=== PATIENT | female | born 1960 | race Caucasian/White ===

== ENCOUNTER → 2018-03-21 | Outpatient (CLI) | payer BC ==
--- NOTE | 2018-03-21 08:14 | CT ---
EXAMINATION TYPE: CT brain wo con DATE OF EXAM: 03/21/2018 COMPARISON: 09/22/2010 HISTORY: Head injury subsequent pain and blurred vision. CT DLP: 1017.9 mGycm. Automated Exposure Control for Dose Reduction was Utilized. TECHNIQUE: CT scan of the head is performed without contrast. FINDINGS: There is no acute intracranial hemorrhage, mass effect, or midline shift identified. No suspicious extra-axial fluid collection. The ventricles and sulci are within normal limits in size. The globes are intact and the visualized sinuses are clear. There is undulation of the nasal septum. No evidence of acute fracture or dislocation in the visualized osseous structures. Scant mucosal secr etions are seen within the posterior nasopharynx. Orbits are symmetric as are the extraocular muscles and lenses. IMPRESSION: 1. No acute intracranial hemorrhage, mass effect, or midline shift is seen. 2. Globes, extraocular muscles, and lenses are symmetric. No intraconal or extraconal masses seen. Oc cipital lobe and optic and chiasm are unremarkable. If there is further clinical concern MRI could be performed.
== END | disposition home or self-care (01) ==
LOC: RADCTMAIN 07:15
PROVIDERS: ATTEND Family Medicine
DX: S09.90XA Unspecified injury of head, initial encounter (principal)
CPT/HCPCS: 70450

== ENCOUNTER 2020-01-11 06:15 | Day surgery (SDC) | payer BC ==
[2020-01-10 09:13] VITALS: BMI 36.0
[~2020-01-11 06:15] MED LIST: ALPRAZolam 0.25 MG TAB PO PRN; ALPRAZolam 0.5 MG TAB PO PRN; NITROGLYCERIN SL TABS 0.4 MG TAB SUBLINGUAL PRN; SODIUM CHLORIDE 0.9% 1,000 ML in EMPTY BAG 1 BAG IV ONE
[2020-01-11] MEDS ORDERED: ASPIRIN 325 MG TAB PO ONE (07:00)
[2020-01-11] MEDS ORDERED: ATORVASTATIN 80 MG TAB PO ONE (07:00)
[2020-01-11] MEDS ORDERED: SODIUM CHLORIDE 0.9% 1,000 ML IV ONE (07:05)
[2020-01-11 07:08] VITALS: RESP 16; TEMP 98.2
[2020-01-11 07:09] LABS: Glucose,Whole Blood 152 mg/dL (75-99)
[2020-01-11 07:16] LABS: Basophils # (A) 0.1 k/uL (0-0.2); Basophils % (A) 1 %; Eosinophils # (A) 0.2 k/uL (0-0.7); Eosinophils % (A) 2 %; HCT 41.7 % (34.0-46.0); HGB 13.3 gm/dL (11.4-16.0); Lymphocytes # (A) 1.5 k/uL (1.0-4.8); Lymphocytes % (A) 19 %; MCHC 31.8 g/dL (31.0-37.0); MCV 94.3 fL (80.0-100.0); Mean Platelet Volume 8.7; Monocytes # (A) 0.4 k/uL (0-1.0); Monocytes % (A) 6 %; Neutrophils # (A) 5.4 k/uL (1.3-7.7); Neutrophils % (A) 71 %; Platelet Count 269 k/uL (150-450); RBC 4.42 m/uL (3.80-5.40); RDW 12.7 % (11.5-15.5); WBC 7.6 k/uL (3.8-10.6)
[2020-01-11 07:25] LABS: African American GFR (CKD) >90 (>60 ml/min/1.73 sqM); Anion Gap 11 mmol/L; Blood Urea Nitrogen 30 mg/dL (7-17); Calcium 9.2 mg/dL (8.4-10.2); Carbon Dioxide 20 mmol/L (22-30); Chloride 107 mmol/L (98-107); Glucose 155 mg/dL (74-99); Non-African American GFR(CKD) >90 (>60 ml/min/1.73 sqM); Potassium 4.3 mmol/L (3.5-5.1); Sodium 138 mmol/L (137-145)
[2020-01-11] MEDS ORDERED: fentaNYL (PF) 50 MCG/ML 2 ML AMP IV ONE (07:50)
[2020-01-11] MEDS ORDERED: LIDOCAINE 1% INJ 10MG/ML (20 ML MDV) SQ ONE (07:53)
[2020-01-11] MEDS ORDERED: MIDAZOLAM 2 MG/2 ML VIAL IVP ONE (07:54)
[2020-01-11] MEDS ORDERED: VERAPAMIL SYRINGE (5 MG/10 ML) INTRAARTER ONE (07:57)
[2020-01-11] MEDS ORDERED: HEPARIN SODIUM 1,000 UN/ML (10ML VL) IV ONE (08:02)
[2020-01-11] MEDS ORDERED: IOPAMIDOL-370 125ML BTL INJ ONE (08:06)
[2020-01-11] MEDS ORDERED: RX INFO: IV CONTRAST WAS GIVEN 1 EACH MISC MISCELLANE PRN (08:21)
[2020-01-11] MEDS ORDERED: SODIUM CHLORIDE 0.9% 1,000 ML IV SCH (08:30)
[2020-01-11] MEDS ORDERED: MULTIVIT WITH CALCIUM IRON MIN PO SCH (09:00)
[2020-01-11] MEDS ORDERED: NON FORMULARY DRUG (Ascorbic Acid [Vitamin C] 1,000 MG) PO SCH (09:00)
[2020-01-11] MEDS ORDERED: ATORVASTATIN 40 MG TAB PO SCH (09:00)
[2020-01-11] MEDS ORDERED: LISINOPRIL 2.5 MG TAB PO SCH (09:00)
--- NOTE | 2020-01-11 11:40 | CC ---
CARDIAC CATHETERIZATION REPORT Mrs Rojas is a 59-year-old female with known history of hypertension, hyperlipidemia, diabetes mellitus, who recently has been complaining of progressive dyspnea on exertion and episode of chest discomfort. She underwent a myocardial perfusion imaging that revealed a partially reversible defect with evidence of cardiomyopathy. In view of that, recommendations were made regarding cardiac catheterization. The procedures, risks, and complications were discussed with the patient who is in full understanding and agreement. PROCEDURE: Patient was brought to cath lab tech in a fasting semi-sedated state after receiving fentanyl and Benadryl and achieving moderate conscious sedated state. Using Xylocaine anesthesia and Seldinger technique, a 6-Cymraes sheath was introduced in the right radial artery. Selective right and left coronary angiography performed using 5-Cymraes 3.5 bend right and left David catheter. Multiple views of the coronary artery including hemiaxial views obtained. Following that 5-Cymraes tight pigtail catheter introduced into the left ventricle and a 30-degree MARISCAL view of the left ventricle was obtained. Following that, catheter and sheath were removed. Hemostasis was obtained with deployment of a TR band. There was no immediate complication. Patient is returned to her room in stable condition. Of note, the patient had received 5000 units of intravenous heparin as well as intra-arterial verapamil. FINDINGS: LEFT MAIN: This is a short size vessel, trifurcating into left circumflex, left anterior descending artery and ramus intermedius. Left main coronary artery has no evidence of obstructive disease. LEFT ANTERIOR DESCENDING ARTERY: This is a large-sized vessel, reaching toward the apex with a wraparound apex segment, giving rise to 3 diagonal branch. The second one is the largest in caliber. The left anterior descending artery as well as branches have no evidence of obstructive coronary artery disease. RAMUS INTERMEDIUS: This is a large-sized vessel reaching toward the apical lateral wall. The ramus intermedius has no evidence of high-grade stenosis. LEFT CIRCUMFLEX: This is a small nondominant vessel, giving rise to 2 obtuse marginal branch of small caliber, prior to the takeoff of the obtuse marginal branch, there is an eccentric 40% plaque. The rest of the vessel has no high-grade stenosis. RIGHT CORONARY ARTERY: This is a large dominant vessel, bifurcating distally into PDA and posterolateral segment and branches. The right coronary artery as well as branches have no evidence of obstructive coronary artery disease. LEFT VENTRICULOGRAM: Left ventriculogram is performed in 30-degree MARISCAL view and revealed a global hypokinesis with ejection fraction of 35% to 40% There was no significant mitral regurgitation. HEMODYNAMICS: There was no gradient across the aortic valve. The left ventricular end- diastolic pressure was 26-30 mmHg. CONCLUSION: 1. Mild obstructive disease involving the left circumflex. 2. Moderately to severely impaired left ventricular systolic function with global hypokinesis. 3. Elevated left ventricular end-diastolic pressure. RECOMMENDATION: Those finding are consistent with nonischemic cardiomyopathy. At this time, I will maximize her medical therapy and depending on her progress, further recommendation will be made. Those findings and recommendation were discussed with the patient her family and they are in full understanding and agreement. Duration of procedure is 22 minutes. MMAMBERLYL / IJN: [id number] /
[2020-01-11 13:26] VITALS: BP 158/74; PULSE 58
[2020-01-11] MEDS ORDERED: METOPROLOL TARTRATE 25 MG TAB PO SCH (21:00)
[2020-01-11] MEDS ORDERED: SERTRALINE 100 MG TAB PO SCH (21:00)
[2020-01-11] MEDS ORDERED: ROPINIROLE HCL 5 MG PO SCH (21:00)
[2020-01-12] MEDS ORDERED: LEVOTHYROXINE 100 MCG TAB PO SCH (06:30)
[2020-01-12] MEDS ORDERED: ASPIRIN 81 MG PO SCH (09:00)
== END 2020-01-11 13:36 | disposition home or self-care (01) ==
LOC: CATHCVL 06:15
PROVIDERS: ATTEND Internal Medicine Interventional Cardiology
DX: I25.10 Atherosclerotic heart disease of native coronary artery without angina pectoris (principal); I10 Essential (primary) hypertension; I42.8 Other cardiomyopathies; E78.2 Mixed hyperlipidemia; E11.9 Type 2 diabetes mellitus without complications; E66.9 Obesity, unspecified; Z79.84 Long term (current) use of oral hypoglycemic drugs; Z79.82 Long term (current) use of aspirin; Z79.899 Other long term (current) drug therapy; Z88.5 Allergy status to narcotic agent; Z90.710 Acquired absence of both cervix and uterus; Z90.49 Acquired absence of other specified parts of digestive tract; Z98.890 Other specified postprocedural states; Z96.659 Presence of unspecified artificial knee joint; Z87.891 Personal history of nicotine dependence; Z82.49 Family history of ischemic heart disease and other diseases of the circulatory system; Z68.36 Body mass index [BMI] 36.0-36.9, adult
CPT/HCPCS: 93458; 80048; 85025; U0003; J2250; J2001; J3010; J1644; Q9967

== ENCOUNTER 2020-06-03 08:28 | Observation (INO) | payer BC ==
--- NOTE | 2020-06-03 09:10 | ED ---
General Adult HPI - General Chief complaint: Chest Pain Stated complaint: chest tightness/SOB Time Seen by Provider: 06/03/20 08:50 Source: patient, RN notes reviewed, old records reviewed Mode of arrival: wheelchair Limitations: no limitations - History of Present Illness Initial comments: 59-year-old female history of nonischemic cardiomyopathy presenting for evaluation of chest tightness and dyspnea. Parisa Barneysreedhar states since yesterday evening she's had a chest discomfort and dyspnea with exertion. She reports she is easily fatigued. These are associated with nausea and diaphoresis. Pain does travel to the left shoulder. She had a heart catheterization in December 2019. She denies fever or URI symptoms. - Related Data Home Medications Medication Instructions Recorded Confirmed Aspirin [Adult Low Dose Aspirin EC] 81 mg PO DAILY 01/10/20 06/03/20 Sertraline HCl [Zoloft] 100 mg PO HS 01/10/20 06/03/20 Atorvastatin [Lipitor] 20 mg PO HS 06/03/20 06/03/20 Levothyroxine Sodium [Synthroid] 150 mcg PO DAILY 06/03/20 06/03/20 Metoprolol Tartrate [Lopressor] 50 mg PO QAM 06/03/20 06/03/20 rOPINIRole HCL [Requip] 4 mg PO HS 06/03/20 06/03/20 Allergies Allergy/AdvReac Type Severity Reaction Status Date / Time codeine AdvReac NAUSEA, Verified 06/03/20 09:37 VOMITING, SWEATY. Review of Systems ROS Statement: Those systems with pertinent positive or pertinent negative responses have been documented in the HPI. ROS Other: All systems not noted in ROS Statement are negative. Past Medical History Past Medical History: Hypertension, Thyroid Disorder Additional Past Medical History / Comment(s): restless leg syndrome History of Any Multi-Drug Resistant Organisms: None Reported Past Surgical History: Cholecystectomy, Hernia Repair, Hysterectomy, Orthopedic Surgery Additional Past Surgical History / Comment(s): cyst removed from neck Past Psychological History: ADD/ADHD, Anxiety Smoking Status: Former smoker Past Alcohol Use History: Occasional Past Drug Use History: None Reported General Exam Limitations: no limitations General appearance: alert, in no apparent distress Head exam: Present: atraumatic, normocephalic Eye exam: Present: normal appearance, PERRL ENT exam: Present: normal exam Neck exam: Present: normal inspection. Absent: tenderness, meningismus Respiratory exam: Present: normal lung sounds bilaterally. Absent: respiratory distress, wheezes, rales Cardiovascular Exam: Present: regular rate, normal rhythm GI/Abdominal exam: Present: soft. Absent: distended, tenderness, guarding Extremities exam: Present: normal inspection, normal capillary refill. Absent: calf tenderness Back exam: Present: normal inspection Neurological exam: Present: alert, oriented X3, CN II-XII intact. Absent: motor sensory deficit Psychiatric exam: Present: normal affect, normal mood Skin exam: Present: warm, diaphoretic. Absent: cyanosis Course Vital Signs 06/03/20 06/03/20 08:42 10:44 Temperature 98 F Pulse Rate 95 93 Respiratory 16 17 Rate Blood Pressure 157/110 163/111 O2 Sat by Pulse 96 100 Oximetry EKG Findings - EKG Comments: EKG Findings:: EKG: Normal sinus rhythm, left bundle branch block, rate of 96, OH interval 200, QRS duration 126, QTC 475, history of intraventricular conduction delay, no old for comparison, no ST segment elevation. Medical Decision Making - Medical Decision Making 59-year-old female presenting for evaluation of dyspnea and chest tightness. Patient has associated symptoms of nausea and diaphoresis. EKG is sinus rhythm without ST segment elevation, similar QRS morphology compared to rhythm strips in the past. No old EKG for comparison. She had a heart cath in December 2019 which showed mild obstructive disease and was consistent with a nonischemic cardiomyopathy. Her chest x-ray today shows pulmonary vascular congestion concerning for CHF. She has a negative troponin. Her BNP is elevated at 4940. She did have an elevated d-dimer and CT angiography was performed. Negative for pulmonary embolism, showed cardiomegaly and pulmonary vascular congestion. - Lab Data Result diagrams: 06/03/20 09:05 06/03/20 09:05 Lab Results 06/03/20 06/03/20 06/03/20 Range/Units 09:05 09:05 09:05 WBC 9.6 (3.8-10.6) k/uL RBC 4.97 (3.80-5.40) m/uL Hgb 15.5 (11.4-16.0) gm/dL Hct 47.4 H (34.0-46.0) % MCV 95.5 (80.0-100.0) fL MCH 31.2 (25.0-35.0) pg MCHC 32.7 (31.0-37.0) g/dL RDW 12.6 (11.5-15.5) % Plt Count 266 (150-450) k/uL Neutrophils % 77 % Lymphocytes % 14 % Monocytes % 5 % Eosinophils % 2 % Basophils % 1 % Neutrophils # 7.4 (1.3-7.7) k/uL Lymphocytes # 1.4 (1.0-4.8) k/uL Monocytes # 0.5 (0-1.0) k/uL Eosinophils # 0.2 (0-0.7) k/uL Basophils # 0.1 (0-0.2) k/uL PT 10.1 (9.0-12.0) sec INR 1.0 (<1.2) APTT 21.2 L (22.0-30.0) sec D-Dimer 0.64 H (<0.60) mg/L FEU Sodium 135 L (137-145) mmol/L Potassium 4.3 (3.5-5.1) mmol/L Chloride 103 (98-107) mmol/L Carbon Dioxide 25 (22-30) mmol/L Anion Gap 7 mmol/L BUN 18 H (7-17) mg/dL Creatinine 0.50 L (0.52-1.04) mg/dL Est GFR (CKD-EPI)AfAm >90 (>60 ml/min/1.73 sqM) Est GFR (CKD-EPI)NonAf >90 (>60 ml/min/1.73 sqM) Glucose 175 H (74-99) mg/dL Calcium 9.2 (8.4-10.2) mg/dL Magnesium 1.6 (1.6-2.3) mg/dL Total Bilirubin 1.1 (0.2-1.3) mg/dL AST 36 (14-36) U/L ALT 43 H (4-34) U/L Alkaline Phosphatase 63 (38-126) U/L Troponin I (0.000-0.034) ng/mL NT-Pro-B Natriuret Pep pg/mL Total Protein 6.9 (6.3-8.2) g/dL Albumin 4.1 (3.5-5.0) g/dL 06/03/20 06/03/20 Range/Units 09:05 09:05 WBC (3.8-10.6) k/uL RBC (3.80-5.40) m/uL Hgb (11.4-16.0) gm/dL Hct (34.0-46.0) % MCV (80.0-100.0) fL MCH (25.0-35.0) pg MCHC (31.0-37.0) g/dL RDW (11.5-15.5) % Plt Count (150-450) k/uL Neutrophils % % Lymphocytes % % Monocytes % % Eosinophils % % Basophils % % Neutrophils # (1.3-7.7) k/uL Lymphocytes # (1.0-4.8) k/uL Monocytes # (0-1.0) k/uL Eosinophils # (0-0.7) k/uL Basophils # (0-0.2) k/uL PT (9.0-12.0) sec INR (<1.2) APTT (22.0-30.0) sec D-Dimer (<0.60) mg/L FEU Sodium (137-145) mmol/L Potassium (3.5-5.1) mmol/L Chloride (98-107) mmol/L Carbon Dioxide (22-30) mmol/L Anion Gap mmol/L BUN (7-17) mg/dL Creatinine (0.52-1.04) mg/dL Est GFR (CKD-EPI)AfAm (>60 ml/min/1.73 sqM) Est GFR (CKD-EPI)NonAf (>60 ml/min/1.73 sqM) Glucose (74-99) mg/dL Calcium (8.4-10.2) mg/dL Magnesium (1.6-2.3) mg/dL Total Bilirubin (0.2-1.3) mg/dL AST (14-36) U/L ALT (4-34) U/L Alkaline Phosphatase (38-126) U/L Troponin I 0.028 (0.000-0.034) ng/mL NT-Pro-B Natriuret Pep 4940 pg/mL Total Protein (6.3-8.2) g/dL Albumin (3.5-5.0) g/dL Disposition Clinical Impression: Chest pain, CHF (congestive heart failure) Disposition: ADMITTED IP TO THIS HOSP Condition: Stable Is patient prescribed a controlled substance at d/c from ED?: No Referrals: Eri Ann DO [Primary Care Provider] - 1-2 days Decision to Admit Reason: Admit from EC Decision Date: 06/03/20 Decision Time: 10:53
--- NOTE | 2020-06-03 09:18 | XR ---
EXAMINATION TYPE: XR chest 2V DATE OF EXAM: 06/03/2020 COMPARISON: 09/22/2010 HISTORY: 59-year-old female with chest pain TECHNIQUE: PA and lateral views FINDINGS: Heart mildly enlarged. Aorta within normal limits. Mild interstitial prominence. No nabor consolidati on or pleural effusion. IMPRESSION: Mild cardiomegaly, new from 2010. Correlate with patient's fluid status to exclude mild pulmonary vas cular congestion.
[2020-06-03 09:19] LABS: Basophils # (A) 0.1 k/uL (0-0.2); Basophils % (A) 1 %; Eosinophils # (A) 0.2 k/uL (0-0.7); Eosinophils % (A) 2 %; HCT 47.4 % (34.0-46.0); HGB 15.5 gm/dL (11.4-16.0); Lymphocytes # (A) 1.4 k/uL (1.0-4.8); Lymphocytes % (A) 14 %; MCH 31.2 pg (25.0-35.0); MCHC 32.7 g/dL (31.0-37.0); MCV 95.5 fL (80.0-100.0); Mean Platelet Volume 8.9; Monocytes # (A) 0.5 k/uL (0-1.0); Monocytes % (A) 5 %; Neutrophils # (A) 7.4 k/uL (1.3-7.7); Neutrophils % (A) 77 %; Platelet Count 266 k/uL (150-450); RBC 4.97 m/uL (3.80-5.40); RDW 12.6 % (11.5-15.5); WBC 9.6 k/uL (3.8-10.6)
[2020-06-03 09:32] LABS: ALT 43 U/L (4-34); AST 36 U/L (14-36); African American GFR (CKD) >90 (>60 ml/min/1.73 sqM); Albumin 4.1 g/dL (3.5-5.0); Alkaline Phosphatase 63 U/L (38-126); Anion Gap 7 mmol/L; Blood Urea Nitrogen 18 mg/dL (7-17); Calcium 9.2 mg/dL (8.4-10.2); Carbon Dioxide 25 mmol/L (22-30); Chloride 103 mmol/L (98-107); Glucose 175 mg/dL (74-99); Magnesium 1.6 mg/dL (1.6-2.3); Non-African American GFR(CKD) >90 (>60 ml/min/1.73 sqM); Potassium 4.3 mmol/L (3.5-5.1); Sodium 135 mmol/L (137-145); Total Bilirubin 1.1 mg/dL (0.2-1.3); Total Protein 6.9 g/dL (6.3-8.2)
[2020-06-03 09:39] LABS: Prothrombin Time 10.1 sec (9.0-12.0)
[2020-06-03 09:43] LABS: D-Dimer 0.64 mg/L FEU (<0.60); Partial Thromboplastin Time 21.2 sec (22.0-30.0)
[2020-06-03] MEDS ORDERED: FUROSEMIDE 10 MG/ML 4 ML VIAL IV STA (10:13)
--- NOTE | 2020-06-03 11:10 | CT ---
EXAMINATION TYPE: CT angio chest DATE OF EXAM: 06/03/2020 10:40 AM COMPARISON: HISTORY: difficulty breathing CT DLP: 368.1 mGycm Automated exposure control for dose reduction was used. CONTRAST: CTA scan of the thorax is performed with IV Contrast, patient injected with 100 mL of Isovue 370, pul monary embolism protocol. MIP images are created and reviewed. FINDINGS: LUNGS: The lungs are grossly clear, there is no concerning parenchymal mass or nodule identified. Mil d atelectasis. Trace bilateral pleural effusions. No pneumothorax seen. The tracheobronchial tree is patent. MEDIASTINUM: There is satisfactory enhancement of the pulmonary artery and its branches, there is no CT evidence for pulmonary embolism. 3.1 cm main pulmonary artery. Mild pulmonary vascular congestion . There are no greater than 1 cm hilar or mediastinal lymph nodes. No pericardial effusion is seen. Calcific coronary artery disease. Cardiomegaly. There is reflux of contrast into the IVC and hepatic veins. There is also contrast into the azygos vein. OTHER: Small hiatal hernia. Degenerative changes of the spine. IMPRESSION: 1. No evidence of pulmonary embolism. 2. Marked cardiomegaly. Mild pulmonary vascular congestion and trace pleural effusions. Findings may represent CHF. 3. Enlarged main pulmonary arterial trunk and reflux of contrast. Findings may represent pulmonary ar terial hypertension.
[2020-06-03] MEDS ORDERED: NALOXONE 0.4 MG/ML 1 ML VIAL IV PRN (11:13)
[2020-06-03] MEDS: METOPROLOL TARTRATE 50 MG TAB PO SCH (15:10)
[2020-06-03] MEDS ORDERED: HYDROcodone/APAP 5-325MG 1 EACH TAB PO PRN (16:04)
[2020-06-03] MEDS ORDERED: ACETAMINOPHEN TAB 325 MG TAB PO PRN (16:04)
--- NOTE | 2020-06-03 16:39 | P.HPIM ---
History of Present Illness H&P Date: 06/03/20 59-year-old female with PMH of hypertension, hypothyroidism, CHF unknown EF, CAD presents to the ED for shortness of breath. Patient reports 2 days of dyspnea on exertion. She also reports chest tightness that has been ongoing for the past 2 days. Chest pain is 7 out of 10 in severity described as pressure-like in nature. Chest pain radiates to left shoulder. Patient reports having similar symptoms in December and underwent cardiac cath showed mild shocked disease with moderate to severe impairment of left ventricular systolic function with global hypokinesis. Patient denies any headache, lower extremity edema, orthopnea, nausea or vomiting, fever or chills, palpitations, changes in urinati on or bowel habits. No changes in appetite or weight. She denies any dizziness, numbness/weakness as tingling of the extremities. In the ED, she had a blood pressure of 157/110, pulse of 95 and O2 saturation 96% on room air. D- dimer was elevated at 0.64, CTA chest ruled out PE, showed cardiomegaly and pulmonary vascular congestion and trace pleural effusion. CMP showed glucose of 175 and ALT of 43. Troponin was 0.028, EKG showing normal sinus rhythm with T- wave inversions. BNP was 4940, chest x-ray showing cardiomegaly and pulmonary vascular congestion. Patient is admitted for CHF exacerbation with cardiology consultation. Review of Systems Pertinent positives and negatives as discussed in HPI, a complete review of systems was performed and all other systems are negative. Past Medical History Past Medical History: Hypertension, Thyroid Disorder Additional Past Medical History / Comment(s): restless leg syndrome History of Any Multi-Drug Resistant Organisms: None Reported Past Surgical History: Cholecystectomy, Hernia Repair, Hysterectomy, Orthopedic Surgery Additional Past Surgical History / Comment(s): cyst removed from neck. heart cath december 2019-no stents. total rt knee replacement Past Anesthesia/Blood Transfusion Reactions: No Reported Reaction Past Psychological History: ADD/ADHD, Anxiety Smoking Status: Former smoker Past Alcohol Use History: Occasional Past Drug Use History: None Reported - Past Family History Mother Family Medical History: Cancer Father Family Medical History: Cancer Additional Family Medical History / Comment(s): heart attack Medications and Allergies Home Medications Medication Instructions Recorded Confirmed Type Aspirin [Adult Low Dose Aspirin EC] 81 mg PO DAILY 01/10/20 06/03/20 History Sertraline HCl [Zoloft] 100 mg PO HS 01/10/20 06/03/20 History Atorvastatin [Lipitor] 20 mg PO HS 06/03/20 06/03/20 History Levothyroxine Sodium [Synthroid] 150 mcg PO DAILY 06/03/20 06/03/20 History Metoprolol Tartrate [Lopressor] 50 mg PO QAM 06/03/20 06/03/20 History rOPINIRole HCL [Requip] 4 mg PO HS 06/03/20 06/03/20 History Allergies Allergy/AdvReac Type Severity Reaction Status Date / Time codeine AdvReac NAUSEA, Verified 06/03/20 09:37 VOMITING, SWEATY. Physical Exam Vitals: Vital Signs Temp Pulse Pulse Resp BP BP Pulse Ox 06/03/20 14:52 97.9 F 98 16 133/90 97 06/03/20 13:30 74 21 129/78 94 L 06/03/20 12:30 105 H 23 139/74 94 L 06/03/20 12:00 75 26 H 149/96 96 06/03/20 11:30 68 24 164/117 95 06/03/20 10:44 93 17 163/111 100 06/03/20 08:42 98 F 95 16 157/110 96 Intake and Output 06/03/20 06/03/20 06/03/20 06:59 14:59 22:59 Other: Weight 86.183 kg General: [non toxic], [no distress], [appears at stated age] Derm: [warm], [dry] Head: [atraumatic], [normocephalic], [symmetric] Eyes: [EOMI], [no lid lag], [anicteric sclera] Mouth: [no lip lesion], [mucus membranes moist] Cardiovascular: [S1S2 reg], [no murmur], [positive posterior tibial pulse bilateral], Lungs: [Decreased breath sounds bilateral], [no rhonchi, no rales] , [no accessory muscle use] Abdominal: [soft], [ nontender to palpation], [no guarding], [no appreciable organomegaly] Ext: [no gross muscle atrophy], [no edema], [no contractures] Neuro: [ CN II-XI grossly intact], [no focal neuro deficits] Psych: [Alert], [oriented], [appropriate affect] Results CBC & Chem 7: 06/03/20 09:05 06/03/20 09:05 Labs: Abnormal Lab Results - Last 24 Hours (Table) 06/03/20 06/03/20 06/03/20 Range/Units 09:05 09:05 09:05 Hct 47.4 H (34.0-46.0) % APTT 21.2 L (22.0-30.0) sec D-Dimer 0.64 H (<0.60) mg/L FEU Sodium 135 L (137-145) mmol/L BUN 18 H (7-17) mg/dL Creatinine 0.50 L (0.52-1.04) mg/dL Glucose 175 H (74-99) mg/dL ALT 43 H (4-34) U/L Thrombosis Risk Factor Assmnt - Choose All That Apply Each Risk Factor Represents 2 Points: Age 61-74 years Thrombosis Risk Factor Assessment Total Risk Factor Score: 2 Thrombosis Risk Factor Assessment Level: Low Risk Assessment and Plan Assessment: Acute systolic CHF exacerbation Chest pain with history of CAD Hyperglycemia Elevated d-dimer Elevated ALT Hypertension Hypothyroidism Patient with elevated BNP and chest x-ray suggesting pulmonary vascular congestion. Plans: Start Lasix 40 mg IV twice a day. Follow-up echocardiogram. Strict intake and output. Daily weights. Follow cardiology consultation. Repeat chest x-ray tomorrow morning. Troponin 0.028 with EKG showing sinus tachycardia with T-wave inversions. Plans: Restart aspirin and Lipitor. Trend troponin/EKG to rule out ACS. Telemetry monitoring. Restart beta francisco j. Glucose 175. Plans: Obtain A1c. D-dimer elevated. CTA chest ruled out PE. Plans: Nothing further to do. ALT 43. Unknown etiology. Plans: Continue to monitor. Repeat CMP tomorrow morning. BP 157/101. Plans: Continue metoprolol. Monitor vitals, adjust medications if necessary. Plan: Continue Synthroid. DVT prophylaxis: [Heparin] Discussed with: [Patient] Anticipated discharge: [2-3 days] Anticipated discharge place: [Home] A total of [45] minutes was spent on the care of this complex patient more than 50% of the time was spent in counseling and care coordination. Patient names her children Mirta and Jaleel decision-makers if she can't make decisions for herself. Patient would like to be full code
[2020-06-03] MEDS: rOPINIRole HCL 4 MG TABLET PO SCH (21:59)
[2020-06-03] MEDS: FUROSEMIDE 10 MG/ML 4 ML VIAL IV SCH (21:59)
[2020-06-03] MEDS: SERTRALINE 100 MG TAB PO SCH (21:59)
[2020-06-03] MEDS: ATORVASTATIN 20 MG TAB PO SCH (21:59)
[2020-06-03] MEDS: HEPARIN SODIUM,PORCINE 5,000 UNIT/ML 1 ML VIAL SQ SCH (21:59)
[2020-06-04 04:03] LABS: Hemoglobin A1C 6.4 % (4.0-6.0)
[2020-06-04] MEDS: LEVOTHYROXINE 75 MCG TAB PO SCH (06:17)
[2020-06-04 08:13] LABS: Basophils # (A) 0.1 k/uL (0-0.2); Basophils % (A) 1 %; Eosinophils # (A) 0.1 k/uL (0-0.7); Eosinophils % (A) 2 %; HCT 46.3 % (34.0-46.0); HGB 15.1 gm/dL (11.4-16.0); Lymphocytes # (A) 1.7 k/uL (1.0-4.8); Lymphocytes % (A) 26 %; MCH 31.3 pg (25.0-35.0); MCHC 32.6 g/dL (31.0-37.0); MCV 96.2 fL (80.0-100.0); Mean Platelet Volume 8.8; Monocytes # (A) 0.5 k/uL (0-1.0); Monocytes % (A) 8 %; Neutrophils # (A) 4.2 k/uL (1.3-7.7); Neutrophils % (A) 62 %; Platelet Count 245 k/uL (150-450); RBC 4.82 m/uL (3.80-5.40); RDW 12.6 % (11.5-15.5); WBC 6.8 k/uL (3.8-10.6)
[2020-06-04 08:23] LABS: African American GFR (CKD) >90 (>60 ml/min/1.73 sqM); Anion Gap 6 mmol/L; Blood Urea Nitrogen 17 mg/dL (7-17); Calcium 9.2 mg/dL (8.4-10.2); Carbon Dioxide 32 mmol/L (22-30); Chloride 100 mmol/L (98-107); Glucose 151 mg/dL (74-99); Magnesium 1.7 mg/dL (1.6-2.3); Non-African American GFR(CKD) >90 (>60 ml/min/1.73 sqM); Potassium 3.9 mmol/L (3.5-5.1); Sodium 138 mmol/L (137-145)
[2020-06-04] MEDS: ASPIRIN 81 MG PO SCH (09:05)
[2020-06-04] MEDS: METOPROLOL TARTRATE 50 MG TAB PO SCH (09:05)
[2020-06-04] MEDS: HEPARIN SODIUM,PORCINE 5,000 UNIT/ML 1 ML VIAL SQ SCH ×2 (09:06→20:29)
[2020-06-04] MEDS: FUROSEMIDE 10 MG/ML 4 ML VIAL IV SCH (09:08)
--- NOTE | 2020-06-04 09:16 | XR ---
EXAMINATION TYPE: XR chest 1V DATE OF EXAM: 06/04/2020 CLINICAL HISTORY: CHF exacerbation TECHNIQUE: Portable upright view of the chest COMPARISON: 06/03/[address] chest FINDINGS: Cardiomegaly. Mediastinal silhouette normal. Decreased pulmonary vascular congestion versu s 06/03/2020. Blunting of the left costophrenic angle may represent trace left pleural effusion. No f ocal airspace opacity. No pneumothorax. IMPRESSION: Marked cardiomegaly. Decreased pulmonary vascular congestion versus 06/03/2020.
--- NOTE | 2020-06-04 11:02 | ECHOF ---
Referral Reason: MEASUREMENTS -------- HEIGHT: 162.6 cm WEIGHT: 86.2 kg BP: RVIDd: 3.3 cm (< 3.3) IVSd: 0.9 cm (0.6 - 1.1) LVIDd: 5.5 cm (3.9 - 5.3) LVPWd: 1.1 cm (0.6 - 1.1) IVSs: 1.4 cm LVIDs: 4.8 cm LVPWs: 1.2 cm LAESV Index (A-L): 29.18 ml/m Ao Diam: 2.7 cm (2.0 - 3.7) AV Cusp: 1.6 cm (1.5 - 2.6) LA Diam: 3.2 cm (2.7 - 3.8) MV EXCURSION: 17.354 mm (> 18.000) MV EF SLOPE: 61 mm/s (70 - 150) EPSS: 2.2 cm MV E Aubrey: 0.81 m/s MV DecT: 175 ms MV A Aubrey: 0.63 m/s MV E/A Ratio: 1.28 AR PHT: 1190 ms RAP: 5.00 mmHg RVSP: 7.40 mmHg FINDINGS -------- This was a technically difficult study with suboptimal views. The left ventricular size is normal. Left ventricular wall thickness is normal. There is severe g lobal hypokinesis of LV . Overall left ventricular systolic function is severely impaired with, an EF between 20 - 25 %. Both the mean atrial pressure as well as the LV end diastolic pressure is holland vated 35.27. The right ventricle is mildly enlarged. The global wall thickness of the right ventricle is mildly enlarged. LA is midly dilated 29-33ml/m2. The right atrial size is normal. Lumason used The aortic valve is trileaflet and appears structurally normal. Trace amount of aortic regurgitatio n. The mitral valve is normal. There is trace mitral regurgitation. The tricuspid valve appears structurally normal. Trace tricuspid regurgitation present. Right sweta tricular systolic pressure is normal at < 35 mmHg. There is no pulmonic regurgitation present. The aortic root size is normal. IVC Not well visulized. There is no pericardial effusion. CONCLUSIONS -------- 1. The left ventricular size is normal. 2. Left ventricular wall thickness is normal. 3. There is severe global hypokinesis of LV . 4. Overall left ventricular systolic function is severely impaired with, an EF between 20 - 25 %. 5. Both the mean atrial pressure as well as the LV end diastolic pressure is elevated 35.27. 6. The right ventricle is mildly enlarged. 7. The global wall thickness of the right ventricle is mildly enlarged. 8. LA is midly dilated 29-33ml/m2. 9. Trace amount of aortic regurgitation. 10. There is trace mitral regurgitation. 11. Trace tricuspid regurgitation present. 12. There is no pericardial effusion. CONTENT STRATEGIST: Mariia Gonzalez RDCS
[2020-06-04] MEDS: SPIRONOLACTONE 25 MG TAB PO SCH (12:09)
[2020-06-04] MEDS: LOSARTAN 50 MG TAB PO SCH (12:10)
--- NOTE | 2020-06-04 14:07 | P.PN ---
Subjective Progress Note Date: 06/04/20 Principal diagnosis: CHF exacerbation Patient reports feeling better today. Shortness of breath is improving. She is not back to her normal self yet. She is not on any oxygen at this time. Objective - Vital Signs Vital signs: Vital Signs Temp 96.3 F L 06/04/20 12:30 Pulse 73 06/04/20 12:30 Resp 18 06/04/20 12:30 BP 127/86 06/04/20 12:30 Pulse Ox 95 06/04/20 12:30 Intake & Output 06/03/20 06/04/20 06/04/20 18:59 06:59 18:59 Intake Total 300 Output Total 2000 Balance 300 -2000 Weight 86.183 kg Intake: Oral 300 Output: Urine 2000 Other: Voiding Method Toilet # Voids 3 - Exam General: The patient is awake and alert, in no distress Eye: there is normal conjunctiva bilaterally. Neck: The neck is supple, there is no JVD. Cardiovascular: Normal S1-S2, no S3-S4, no murmurs. Respiratory: Lungs clear to auscultation bilaterally Gastrointestinal: Abdomen is soft, nontender Musculoskeletal: There is no pedal edema. Neurological:. Speech is normal. Skin: Skin is warm and dry - Labs CBC & Chem 7: 06/04/20 07:09 06/04/20 07:09 Labs: Abnormal Lab Results - Last 24 Hours (Table) 06/03/20 06/04/20 06/04/20 Range/Units 17:02 07:09 07:09 Hct 46.3 H (34.0-46.0) % Carbon Dioxide 32 H (22-30) mmol/L Glucose 151 H (74-99) mg/dL Hemoglobin A1c 6.4 H (4.0-6.0) % Assessment and Plan Assessment: This is a 59-year-old female with complex past medical history noted below that presented to the hospital with worsening shortness of breath. Patient was evaluated in the ER and currently admitted to the hospital for further management of her medical problems noted below. 1. Acute systolic heart failure exacerbation, started on IV Lasix twice daily with good response. Seen and evaluated by cardiology. Switched to oral Lasix 40 mg daily. Continue daily weights and strict I's and O's. 2. Nonischemic cardiomyopathy, echocardiogram showed EF of 25-30%. Recent left heart catheterization showed nonobstructive coronary artery disease. Continue optimal medical management. Losartan and spironolactone added by cardiology. I would change her metoprolol tartrate dose to 25 mg twice daily instead of 50 mg once a day. 3. Elevated d-dimer on presentation, CT angiogram of the chest negative for PE 4. Essential hypertension, blood pressure not well controlled. Regimen adjusted. We will continue to monitor closely 5. Underlying hyperlipidemia and hypothyroidism, continue home medication 6. Prediabetes, A1c 6.4. Counseled regarding lifestyle modification and exercise 7. DVT prophylaxis with subcu heparin Today, I reviewed her medication list and lab work results. Continue current regimen. Encouraged ambulation. Anticipate discharge home tomorrow.
--- NOTE | 2020-06-04 14:36 | CONS ---
CONSULTATION This is a 59-year-old lady with a recent diagnosis of nonischemic cardiomyopathy with ejection fraction in the 35% range, who sees Dr. Urban in the outpatient setting. She was recently switched from amlodipine to lisinopril but stopped taking lisinopril. She comes into the hospital with sharp pains in the right side of the chest, very atypical in nature and she also complained of some shortness of breath, was found to have mild congestive heart failure clinically. A CT angiogram was performed because of nondescript chest tightness, pressure and also elevated D-dimer and this revealed no evidence of any pulmonary embolism. There was some trace of pleural effusions noted. She had a chest x-ray which revealed pulmonary vascular fullness. There was also an elevated BNP in the range of 4,900. However, troponins are normal. She received intravenous Lasix and she feels comfortable. Her D-dimer was elevated to 0.64. Recently, she had a coronary angiography by Dr. Urban which revealed no significant obstructive CAD within the last 6 to 7 months, probably in December of this year. She is resting comfortably without symptoms. PAST MEDICAL HISTORY: 1. Nonischemic cardiomyopathy. 2. Hypothyroidism on replacement therapy. 3. Hyperlipidemia. 4. Past history of smoking. 5. Mild depression. MEDICATIONS: At home include Zoloft, Lopressor 50 mg daily. She has stopped lisinopril on her own, unclear, aspirin 81 mg daily, Synthroid 150 mcg daily, atorvastatin 20 mg daily. ALLERGIES: To CODEINE. REVIEW OF SYSTEMS: Unremarkable other than above-mentioned facts. PHYSICAL EXAMINATION: On examination, blood pressure 140/88, pulse rate about 90 per minute. HEENT: Unremarkable. Fundus was not examined by me. NECK: Supple, there is JVD of 1 cm. No carotid bruit. HEART: Exam reveals S1, S2 heard normally with a short systolic murmur at the left sternal border and apex. LUNGS: Reveal decent air entry. No rales. ABDOMEN: Soft, nontender. Lower extremities reveal palpable pulses, trace edema on the right lower extremity. Central nervous system grossly within normal limits EKG revealed sinus mechanism, left axis deviation, IVCD. IMPRESSION: 1. Exacerbation of systolic heart failure. 2. Nonischemic cardiomyopathy. 3. Hypertension. 4. Past history of smoking. RECOMMENDATIONS: Patient drinks alcohol 2 or 3 times a week on a regular basis. I have advised her to refrain from alcohol and start Aldactone 25 mg daily, switch her to oral Lasix 40 mg from tomorrow. She already received IV Lasix today and clinically her lungs are quite clear and I will also initiate her on losartan 100 mg daily. Continue metoprolol tartrate 25 mg b.i.d. We will adjust medications, increase activity. Repeat EKG and if she remains stable, she may be discharged tomorrow. I discussed my thoughts in detail with the patient. Thank you very much for the consult. MIRANDA / DEVIN: [id number] /
[2020-06-04 15:14] VITALS: BMI 32.5
[2020-06-04] MEDS ORDERED: FUROSEMIDE 40 MG TAB PO SCH (16:00)
[2020-06-04] MEDS: ATORVASTATIN 20 MG TAB PO SCH (20:29)
[2020-06-04] MEDS: METOPROLOL TARTRATE 25 MG TAB PO SCH (20:29)
[2020-06-04] MEDS: SERTRALINE 100 MG TAB PO SCH (20:29)
[2020-06-04] MEDS: rOPINIRole HCL 4 MG TABLET PO SCH (20:29)
[2020-06-05] MEDS: LEVOTHYROXINE 75 MCG TAB PO SCH (06:46)
[2020-06-05] MEDS: ASPIRIN 81 MG PO SCH (08:50)
[2020-06-05] MEDS: LOSARTAN 50 MG TAB PO SCH (08:50)
[2020-06-05] MEDS: HEPARIN SODIUM,PORCINE 5,000 UNIT/ML 1 ML VIAL SQ SCH (08:50)
[2020-06-05] MEDS: METOPROLOL TARTRATE 25 MG TAB PO SCH (08:50)
[2020-06-05] MEDS: SPIRONOLACTONE 25 MG TAB PO SCH (08:59)
[2020-06-05] MEDS ORDERED: FUROSEMIDE 40 MG TAB PO SCH (09:00)
[2020-06-05 09:11] VITALS: RESP 18; TEMP 96.8
--- NOTE | 2020-06-05 09:58 | P.DS ---
Providers Date of admission: 06/03/20 11:13 Expected date of discharge: 06/05/20 Attending physician: Kym Holbrook MD Consults: 06/03/20 11:14 Consult Physician Routine Consulting Provider: Andriy Urban Consult Reason/Comments: chf Do you want consulting provider notified?: Yes Primary care physician: [facility] Course: This is a 59-year-old female with complex past medical history noted below that presented to the hospital with worsening shortness of breath. Patient was evaluated in the ER and currently admitted to the hospital for further management of her medical problems noted below. 1. Acute systolic heart failure exacerbation, started on IV Lasix twice daily with good response. Seen and evaluated by cardiology. Switched to oral Lasix 40 mg daily. Continue daily weights and strict I's and O's. 2. Nonischemic cardiomyopathy, echocardiogram showed EF of 25-30%. Recent left heart catheterization showed nonobstructive coronary artery disease. Continue optimal medical management. Losartan and spironolactone added by cardiology. I would change her metoprolol tartrate dose to 25 mg twice daily instead of 50 mg once a day. Follow-up with cardiology as directed in the office 3. Elevated d-dimer on presentation, CT angiogram of the chest negative for PE 4. Essential hypertension, blood pressure well controlled 5. Underlying hyperlipidemia and hypothyroidism, continue home medication 6. Prediabetes, A1c 6.4. Counseled regarding lifestyle modification and exercise Patient will be discharged home in a stable condition. For further details about this hospitalization please refer to the electronic chart. Time spent on discharge > 30 minutes including counseling and coordination of Patient Condition at Discharge: Stable Plan - Discharge Summary New Discharge Prescriptions: New Spironolactone [Aldactone] 25 mg PO DAILY #30 tab Losartan Potassium [Cozaar] 100 mg PO DAILY #30 tab Furosemide [Lasix] 40 mg PO DAILY #30 tab Metoprolol Tartrate [Lopressor] 25 mg PO BID #60 tab Continue Sertraline HCl [Zoloft] 100 mg PO HS Aspirin [Adult Low Dose Aspirin EC] 81 mg PO DAILY Levothyroxine Sodium [Synthroid] 150 mcg PO DAILY Atorvastatin [Lipitor] 20 mg PO HS rOPINIRole HCL [Requip] 4 mg PO HS Discontinued Metoprolol Tartrate [Lopressor] 50 mg PO QAM Discharge Medication List Aspirin [Adult Low Dose Aspirin EC] 81 mg PO DAILY 01/10/20 [History] Sertraline HCl [Zoloft] 100 mg PO HS 01/10/20 [History] Atorvastatin [Lipitor] 20 mg PO HS 06/03/20 [History] Levothyroxine Sodium [Synthroid] 150 mcg PO DAILY 06/03/20 [History] rOPINIRole HCL [Requip] 4 mg PO HS 06/03/20 [History] Furosemide [Lasix] 40 mg PO DAILY #30 tab 06/05/20 [Rx] Losartan Potassium [Cozaar] 100 mg PO DAILY #30 tab 06/05/20 [Rx] Metoprolol Tartrate [Lopressor] 25 mg PO BID #60 tab 06/05/20 [Rx] Spironolactone [Aldactone] 25 mg PO DAILY #30 tab 06/05/20 [Rx] Follow up Appointment(s)/Referral(s): Andriy Urban MD [STAFF PHYSICIAN] - 06/13/20 11:00 am () Re[facility],Cardiac [NON-STAFF] - Lizzie Iverson MD [Primary Care Provider] - 1-2 Days Discharge Disposition: HOME SELF-CARE
--- NOTE | 2020-06-05 11:21 | P.PN ---
Subjective This is a pleasant 59-year-old female past medical history significant for nonischemic cardiomyopathy and dyslipidemia. She follows in the office with Dr. Urban. She is seen and examined sitting up in the chair in no acute distress. She states her breathing has improved. She denies chest pain, dizziness or palpitations. Blood pressure 122/86 heart rate 81 afebrile maintaining oxygen saturation on room air. Laboratory data reviewed, CBC unremarkable, sodium 138, potassium 3.9, creatinine 0.6 and magnesium 1.7. Currently maintained on Aldactone 25 mg daily, metoprolol 25 mg twice a day, losartan 100 mg daily, Lasix 40 mg by mouth daily, atorvastatin 20 mg daily and aspirin 81 mg daily. Repeat echocardiogram reveals severely impaired LV systolic function with ejection fraction 20-25%, global wall thickness of the right ventricle is mildly enlarged. GENERAL: Well-appearing, well-nourished and in no acute distress. NECK: Supple without JVD or thyromegaly. LUNGS: Breath sounds clear to auscultation bilaterally. Respiration equal and unlabored. No wheezes, rales or rhonchi. HEART: Regular rate and rhythm with systolic ejection murmur at the left sternal border, no rubs or gallops. S1 and S2 heard. EXTREMITIES: Normal range of motion, no edema. No clubbing or cyanosis. Peripheral pulses intact. ASSESSMENT Acute on chronic systolic heart failure Nonischemic cardiomyopathy Hypertension Dyslipidemia PLAN Stable for discharge on current medical regimen. Again discussed complete alcohol cessation with the patient. Medication compliance imperative. Follow-up with Dr. Urban upon discharge. Nurse Practitioner note has been reviewed, I agree with a documented findings and plan of care. Patient was seen and examined. Objective - Vital Signs Vital signs: Vital Signs Temp 96.8 F L 06/05/20 09:08 Pulse 81 06/05/20 10:41 Resp 18 06/05/20 10:41 BP 122/86 06/05/20 10:41 Pulse Ox 96 06/05/20 04:00 Intake & Output 06/04/20 06/05/20 06/05/20 18:59 06:59 18:59 Intake Total 100 300 Balance 100 300 Weight 92.5 kg 92.2 kg Intake: Oral 100 300 Other: Voiding Method Toilet # Voids 2 - Labs CBC & Chem 7: 06/04/20 07:09 06/04/20 07:09
[2020-06-05 12:10] VITALS: BP 144/88; PULSE 95
== END 2020-06-05 12:12 | disposition home or self-care (01) ==
LOC: EC 08:28 → 3SCARD 11:13 → INTOOBSV 11:13 → 3SCARD 14:28 → UNDODISIN 06-05 12:12
PROVIDERS: ADMIT Family Medicine; ATTEND Family Medicine
DX: I11.0 Hypertensive heart disease with heart failure (principal); I50.21 Acute systolic (congestive) heart failure; I42.8 Other cardiomyopathies; R74.01 Elevation of levels of liver transaminase levels; E03.9 Hypothyroidism, unspecified; R73.03 Prediabetes; I25.10 Atherosclerotic heart disease of native coronary artery without angina pectoris; G25.81 Restless legs syndrome; R79.89 Other specified abnormal findings of blood chemistry; F32.9 Major depressive disorder, single episode, unspecified; E78.5 Hyperlipidemia, unspecified; Z98.890 Other specified postprocedural states; J90 Pleural effusion, not elsewhere classified; F90.9 Attention-deficit hyperactivity disorder, unspecified type; F41.9 Anxiety disorder, unspecified; Z87.891 Personal history of nicotine dependence; Z90.710 Acquired absence of both cervix and uterus; Z96.651 Presence of right artificial knee joint; Z79.82 Long term (current) use of aspirin; Z90.49 Acquired absence of other specified parts of digestive tract; Z82.49 Family history of ischemic heart disease and other diseases of the circulatory system; Z80.9 Family history of malignant neoplasm, unspecified; Z79.890 Hormone replacement therapy; Z79.899 Other long term (current) drug therapy; Z88.5 Allergy status to narcotic agent
CPT/HCPCS: 96376 ×2; 96372 ×3; 96374; 99285; 36415; 93005; 93306; 85379; 83880; 80053; 80048; 83735 ×2; 84484; 85025 ×2; 85610; 85730; 83036; 71045; 71046; 71275; G0378 ×3; J1644 ×3; J1940 ×2; Q9950; Q9967

== ENCOUNTER → 2020-06-13 | Outpatient (CLI) | payer BC ==
[2020-06-13 22:52] LABS: African American GFR (CKD) 92.2 (60.0-200.0); Albumin 4.3 g/dL (3.80-4.90); Albumin/Globulin Ratio 2.15 (1.60-3.17); Anion Gap 11.1 mmol/L (4.00-12.00); BUN/Creat Ratio 28.75 Ratio (12.00-20.00); Carbon Dioxide 25.9 mmol/L (21.6-31.8); Non-African American GFR(CKD) 79.6 (60.0-200.0); Potassium 4.7 mmol/L (3.5-5.5); Total Bilirubin 0.5 mg/dL (0.3-1.2); Total Protein 6.3 g/dL (6.2-8.2)
== END | disposition home or self-care (01) ==
LOC: LABWHC1 09:41
PROVIDERS: ATTEND Nurse Practitioner Adult Health
DX: I42.8 Other cardiomyopathies (principal)
CPT/HCPCS: 36415; 80053; 83880

== ENCOUNTER → 2020-09-27 | Outpatient (CLI) | payer BC ==
[2020-09-27 17:06] LABS: African American GFR (CKD) 92.2 (60.0-200.0); Albumin 4.5 g/dL (3.80-4.90); Albumin/Globulin Ratio 2.5 (1.60-3.17); Anion Gap 11.5 mmol/L (4.00-12.00); BUN/Creat Ratio 32.5 Ratio (12.00-20.00); Calcium 9.3 mg/dL (8.7-10.3); Carbon Dioxide 25.5 mmol/L (21.6-31.8); Chol/HDL Ratio 3.44; Globulin 1.8 g/dL (1.6-3.3); LDL Cholesterol,Calculated 127.8 mg/dL (0.0-131.0); Non-African American GFR(CKD) 79.6 (60.0-200.0); Potassium 4.5 mmol/L (3.5-5.5); Total Bilirubin 1.1 mg/dL (0.2-1.2); Total Protein 6.3 g/dL (6.2-8.2); VLDL Calculation 38.2 mg/dL (5.00-40.00)
== END | disposition home or self-care (01) ==
LOC: LABWHC1 09:26
PROVIDERS: ATTEND Nurse Practitioner Adult Health
DX: I10 Essential (primary) hypertension (principal); E78.2 Mixed hyperlipidemia
CPT/HCPCS: 36415; 80053; 80061

== ENCOUNTER → 2020-11-19 | Outpatient (CLI) | payer BC ==
[2020-11-19 13:20] LABS: HCT 44.8 % (34.0-46.0); HGB 15.2 gm/dL (11.4-16.0); MCH 31.3 pg (25.0-35.0); MCHC 33.9 g/dL (31.0-37.0); MCV 92.4 fL (80.0-100.0); Mean Platelet Volume 8.9; Platelet Count 267 k/uL (150-450); RBC 4.85 m/uL (3.80-5.40); RDW 12.2 % (11.5-15.5); WBC 7.8 k/uL (3.8-10.6)
[2020-11-19 13:35] LABS: African American GFR (CKD) >90 (>60 ml/min/1.73 sqM); Anion Gap 4 mmol/L; Blood Urea Nitrogen 16 mg/dL (7-17); Carbon Dioxide 29 mmol/L (22-30); Chloride 104 mmol/L (98-107); Non-African American GFR(CKD) >90 (>60 ml/min/1.73 sqM); Potassium 4.7 mmol/L (3.5-5.1); Sodium 137 mmol/L (137-145)
== END | disposition home or self-care (01) ==
LOC: LABPAT 11:12
PROVIDERS: ATTEND Internal Medicine Clinical Cardiac Electrophysiology
DX: Z01.818 Encounter for other preprocedural examination (principal); I42.8 Other cardiomyopathies
CPT/HCPCS: 80051; 82565; 84520; 85027

== ENCOUNTER 2020-11-20 08:00 | Observation (INO) | payer BC ==
--- NOTE | 2020-11-20 08:27 | ED ---
General Adult HPI - General Chief complaint: Chest Pain Stated complaint: heart concerns Time Seen by Provider: 11/20/20 08:13 Source: patient, RN notes reviewed, old records reviewed Mode of arrival: wheelchair Limitations: no limitations - History of Present Illness Initial comments: 59-year-old female history of CHF who is currently scheduled for defibrillator within the next one week has presented for chest pain, chest tightness, and dyspnea. Symptoms have been ongoing although they do seem somewhat episodic. She denies current lower extremity edema but states she has gained some weight. She denies cough. She states reports chest pain is more of a chest tightness which is intermittent. She denies abdominal pain. - Related Data Home Medications Medication Instructions Recorded Confirmed Aspirin [Adult Low Dose Aspirin EC] 81 mg PO DAILY 01/10/20 06/03/20 Sertraline HCl [Zoloft] 100 mg PO HS 01/10/20 06/03/20 Atorvastatin [Lipitor] 20 mg PO HS 06/03/20 06/03/20 Levothyroxine Sodium [Synthroid] 150 mcg PO DAILY 06/03/20 06/03/20 rOPINIRole HCL [Requip] 4 mg PO HS 06/03/20 06/03/20 Previous Rx's Medication Instructions Recorded Furosemide [Lasix] 40 mg PO DAILY #30 tab 06/05/20 Losartan Potassium [Cozaar] 100 mg PO DAILY #30 tab 06/05/20 Metoprolol Tartrate [Lopressor] 25 mg PO BID #60 tab 06/05/20 Spironolactone [Aldactone] 25 mg PO DAILY #30 tab 06/05/20 Allergies Allergy/AdvReac Type Severity Reaction Status Date / Time codeine AdvReac NAUSEA, Verified 11/20/20 08:08 VOMITING, SWEATY. Review of Systems ROS Statement: Those systems with pertinent positive or pertinent negative responses have been documented in the HPI. ROS Other: All systems not noted in ROS Statement are negative. Past Medical History Past Medical History: Chest Pain / Angina, Hypertension, Thyroid Disorder Additional Past Medical History / Comment(s): restless leg syndrome History of Any Multi-Drug Resistant Organisms: None Reported Past Surgical History: Cholecystectomy, Hernia Repair, Hysterectomy, Orthopedic Surgery Additional Past Surgical History / Comment(s): cyst removed from neck. heart cath december 2019-no stents. total rt knee replacement Past Anesthesia/Blood Transfusion Reactions: No Reported Reaction Past Psychological History: ADD/ADHD, Anxiety Smoking Status: Former smoker Past Alcohol Use History: Occasional Past Drug Use History: None Reported - Past Family History Mother Family Medical History: Cancer Father Family Medical History: Cancer Additional Family Medical History / Comment(s): heart attack General Exam Limitations: no limitations General appearance: alert, in no apparent distress Head exam: Present: atraumatic, normocephalic Eye exam: Present: normal appearance, PERRL ENT exam: Present: normal exam Neck exam: Present: normal inspection. Absent: tenderness, meningismus Respiratory exam: Present: normal lung sounds bilaterally. Absent: respiratory distress, wheezes, rales Cardiovascular Exam: Present: regular rate, normal rhythm GI/Abdominal exam: Present: soft. Absent: distended, tenderness, guarding, rebound Extremities exam: Present: normal inspection, normal capillary refill. Absent: pedal edema Neurological exam: Present: alert, oriented X3, CN II-XII intact. Absent: motor sensory deficit Psychiatric exam: Present: normal affect, normal mood Skin exam: Present: warm, dry, intact. Absent: cyanosis, diaphoretic Course Vital Signs 11/20/20 08:05 Temperature 97.6 F Pulse Rate 98 Respiratory 18 Rate Blood Pressure 138/97 O2 Sat by Pulse 98 Oximetry EKG Findings - EKG Comments: EKG Findings:: EKG: Sinus tachycardia, slightly widened QRS, no ST segment elevation, rate of 103, KS interval 204, QRS duration 112, QTC 455 Medical Decision Making - Medical Decision Making 59-year-old female presenting with central chest discomfort, worsening dyspnea history of CHF and cardiomyopathy. Chest x-ray showing pulmonary vascular congestion. She has an elevated BNP, laboratory testing is otherwise unremarkable. She is scheduled for defibrillator placement in 6 days. She will be admitted for chest pain rule out, treatment of CHF. Cardiology placed on consult. I did discuss case with Dr. Curiel who will admit. - Lab Data Result diagrams: 11/20/20 08:27 11/20/20 08:27 Lab Results 11/20/20 11/20/20 11/20/20 Range/Units 08:27 08:27 08:27 WBC 7.2 (3.8-10.6) k/uL RBC 4.80 (3.80-5.40) m/uL Hgb 14.7 (11.4-16.0) gm/dL Hct 43.7 (34.0-46.0) % MCV 91.0 (80.0-100.0) fL MCH 30.6 (25.0-35.0) pg MCHC 33.7 (31.0-37.0) g/dL RDW 12.2 (11.5-15.5) % Plt Count 298 (150-450) k/uL MPV 8.7 Neutrophils % 66 % Lymphocytes % 24 % Monocytes % 6 % Eosinophils % 2 % Basophils % 1 % Neutrophils # 4.7 (1.3-7.7) k/uL Lymphocytes # 1.7 (1.0-4.8) k/uL Monocytes # 0.4 (0-1.0) k/uL Eosinophils # 0.1 (0-0.7) k/uL Basophils # 0.1 (0-0.2) k/uL PT 10.0 (9.0-12.0) sec INR 0.9 (<1.2) APTT 22.2 (22.0-30.0) sec Sodium 136 L (137-145) mmol/L Potassium 4.6 (3.5-5.1) mmol/L Chloride 103 (98-107) mmol/L Carbon Dioxide 26 (22-30) mmol/L Anion Gap 7 mmol/L BUN 18 H (7-17) mg/dL Creatinine 0.63 (0.52-1.04) mg/dL Est GFR (CKD-EPI)AfAm >90 (>60 ml/min/1.73 sqM) Est GFR (CKD-EPI)NonAf >90 (>60 ml/min/1.73 sqM) Glucose 182 H (74-99) mg/dL Calcium 9.4 (8.4-10.2) mg/dL Magnesium 1.8 (1.6-2.3) mg/dL Total Bilirubin 0.8 (0.2-1.3) mg/dL AST 30 (14-36) U/L ALT 26 (4-34) U/L Alkaline Phosphatase 69 (38-126) U/L Troponin I (0.000-0.034) ng/mL NT-Pro-B Natriuret Pep pg/mL Total Protein 6.9 (6.3-8.2) g/dL Albumin 4.2 (3.5-5.0) g/dL 11/20/20 11/20/20 Range/Units 08:27 08:27 WBC (3.8-10.6) k/uL RBC (3.80-5.40) m/uL Hgb (11.4-16.0) gm/dL Hct (34.0-46.0) % MCV (80.0-100.0) fL MCH (25.0-35.0) pg MCHC (31.0-37.0) g/dL RDW (11.5-15.5) % Plt Count (150-450) k/uL MPV Neutrophils % % Lymphocytes % % Monocytes % % Eosinophils % % Basophils % % Neutrophils # (1.3-7.7) k/uL Lymphocytes # (1.0-4.8) k/uL Monocytes # (0-1.0) k/uL Eosinophils # (0-0.7) k/uL Basophils # (0-0.2) k/uL PT (9.0-12.0) sec INR (<1.2) APTT (22.0-30.0) sec Sodium (137-145) mmol/L Potassium (3.5-5.1) mmol/L Chloride (98-107) mmol/L Carbon Dioxide (22-30) mmol/L Anion Gap mmol/L BUN (7-17) mg/dL Creatinine (0.52-1.04) mg/dL Est GFR (CKD-EPI)AfAm (>60 ml/min/1.73 sqM) Est GFR (CKD-EPI)NonAf (>60 ml/min/1.73 sqM) Glucose (74-99) mg/dL Calcium (8.4-10.2) mg/dL Magnesium (1.6-2.3) mg/dL Total Bilirubin (0.2-1.3) mg/dL AST (14-36) U/L ALT (4-34) U/L Alkaline Phosphatase (38-126) U/L Troponin I <0.012 (0.000-0.034) ng/mL NT-Pro-B Natriuret Pep 2640 pg/mL Total Protein (6.3-8.2) g/dL Albumin (3.5-5.0) g/dL Disposition Clinical Impression: Chest pain, CHF (congestive heart failure) Disposition: ADMITTED IP TO THIS [facility] Condition: Stable Is patient prescribed a controlled substance at d/c from ED?: No Referrals: Lizzie Iverson MD [Primary Care Provider] - 1-2 days Decision to Admit Reason: Admit from EC Decision Date: 11/20/20 Decision Time: 10:32
[2020-11-20 08:47] LABS: Basophils # (A) 0.1 k/uL (0-0.2); Basophils % (A) 1 %; Eosinophils # (A) 0.1 k/uL (0-0.7); Eosinophils % (A) 2 %; HCT 43.7 % (34.0-46.0); HGB 14.7 gm/dL (11.4-16.0); Lymphocytes # (A) 1.7 k/uL (1.0-4.8); Lymphocytes % (A) 24 %; MCH 30.6 pg (25.0-35.0); MCHC 33.7 g/dL (31.0-37.0); Mean Platelet Volume 8.7; Monocytes # (A) 0.4 k/uL (0-1.0); Monocytes % (A) 6 %; Neutrophils # (A) 4.7 k/uL (1.3-7.7); Neutrophils % (A) 66 %; Platelet Count 298 k/uL (150-450); RDW 12.2 % (11.5-15.5); WBC 7.2 k/uL (3.8-10.6)
[2020-11-20 08:54] LABS: ALT 26 U/L (4-34); AST 30 U/L (14-36); African American GFR (CKD) >90 (>60 ml/min/1.73 sqM); Albumin 4.2 g/dL (3.5-5.0); Alkaline Phosphatase 69 U/L (38-126); Anion Gap 7 mmol/L; Blood Urea Nitrogen 18 mg/dL (7-17); Calcium 9.4 mg/dL (8.4-10.2); Carbon Dioxide 26 mmol/L (22-30); Chloride 103 mmol/L (98-107); Glucose 182 mg/dL (74-99); Magnesium 1.8 mg/dL (1.6-2.3); Non-African American GFR(CKD) >90 (>60 ml/min/1.73 sqM); Potassium 4.6 mmol/L (3.5-5.1); Sodium 136 mmol/L (137-145); Total Bilirubin 0.8 mg/dL (0.2-1.3); Total Protein 6.9 g/dL (6.3-8.2)
--- NOTE | 2020-11-20 08:54 | XR ---
EXAMINATION TYPE: XR chest 2V DATE OF EXAM: 11/20/2020 COMPARISON: 06/04/2020 TECHNIQUE: PA and lateral views submitted. HISTORY: Chest pain FINDINGS: The lungs are clear and there is no pneumothorax, pleural effusion, or focal pneumonia. Heart is enl arged. Interstitium stable. IMPRESSION: 1. Cardiomegaly. Correlate for mild central venous congestion or interstitial pneumonitis.
[2020-11-20 08:59] LABS: INR 0.9 (<1.2); Partial Thromboplastin Time 22.2 sec (22.0-30.0)
[2020-11-20] MEDS ORDERED: FUROSEMIDE 10 MG/ML 4 ML VIAL IV STA (09:50)
[2020-11-20] MEDS ORDERED: NALOXONE 0.4 MG/ML 1 ML VIAL IV PRN (10:22)
[2020-11-20] MEDS ORDERED: ACETAMINOPHEN TAB 325 MG TAB PO PRN (10:22)
[2020-11-20 16:59] LABS: Glucose,Whole Blood 111 mg/dL (75-99)
[2020-11-20 19:48] LABS: Glucose,Whole Blood 209 mg/dL (75-99)
[2020-11-20] MEDS ORDERED: METOPROLOL TARTRATE 50 MG TAB PO SCH (21:00)
[2020-11-20] MEDS: SERTRALINE 100 MG TAB PO SCH (21:11)
[2020-11-20] MEDS: ATORVASTATIN 20 MG TAB PO SCH (21:12)
[2020-11-20] MEDS: FUROSEMIDE 10 MG/ML 4 ML VIAL IV SCH (21:12)
[2020-11-20] MEDS: metFORMIN 500 MG TAB PO SCH (21:12)
[2020-11-20] MEDS: rOPINIRole HCL 4 MG TABLET PO SCH (21:13)
[2020-11-21] MEDS: LEVOTHYROXINE 75 MCG TAB PO SCH (05:13)
[2020-11-21 07:14] LABS: Glucose,Whole Blood 141 mg/dL (75-99)
[2020-11-21] MEDS ORDERED: LOSARTAN 50 MG TAB PO SCH ×3 (09:00→21:00)
[2020-11-21] MEDS ORDERED: METOPROLOL SUCCINATE (ER) 100 MG TAB.ER.24H PO SCH (09:00)
[2020-11-21] MEDS: ASPIRIN 81 MG PO SCH (09:34)
[2020-11-21] MEDS: FUROSEMIDE 10 MG/ML 4 ML VIAL IV SCH ×2 (09:34→21:43)
[2020-11-21] MEDS: METOPROLOL SUCCINATE (ER) 50 MG TAB.ER.24H PO SCH (09:34)
[2020-11-21] MEDS: SPIRONOLACTONE 25 MG TAB PO SCH (09:35)
[2020-11-21] MEDS: metFORMIN 500 MG TAB PO SCH ×2 (09:35→21:43)
--- NOTE | 2020-11-21 11:23 | P.CRDCN ---
History of Present Illness Consult date: 11/21/20 History of present illness: HISTORY OF PRESENT ILLNESS: This is a 59 year old female with a past medical history significant for nonischemic cardiomyopathy, hypertension, hyperlipidemia, and heart failure. Patient follows in the office with Dr. Urban. Patient is scheduled for AICD implantation on 11/26/[address] Lopez. We have been asked to see the patient in consultation for chest pain. Patient examined at the bedside. Patient presented to the hospital with a chief complaint of chest tightness and shortness of breath. Patient was found to be in acute CHF and placed on IV lasix. At the time of examination this morning, the patient denies having any chest pain or pressure. She states her shortness of breath has improved but is still present with exertion or ambulating to the bathroom. EKG reveals sinus tachycardia with no signs of acute ischemia Chest xray cardiomegaly. Correlate for mild central venous congestion or interstitial pneumonitis. Laboratory data: WBC 7.2. Hemoglobin 14.7. Platelet count 298. Sodium 136. Potassium 4.6. BUN 18. Creatinine 0.63. Troponin negative 3. BNP 2640. Current home cardiac medications include Aldactone 25 mg daily, metoprolol tartrate 50mg twice a day, losartan 100 mg daily, Lasix 40 mg daily, Lipitor 20 mg daily, aspirin 81 mg daily Most recent echocardiogram obtained in May 2020 revealed ejection fraction 20-25%, trace aortic regurgitation, trace mitral regurgitation, and trace tricuspid regurgitation Cardiac catheterization history: December 2019 revealed mild nonobstructive disease involving the left circumflex. REVIEW OF SYSTEMS: At the time of my exam: CONSTITUTIONAL: Denies fever or chills. HEENT: Denies blurred vision, vision changes, or eye pain. Denies hemoptysis CARDIOVASCULAR: Denies chest pain. Denies orthopnea. Denies PND. Denies palpitations RESPIRATORY: Denies shortness of breath. GASTROINTESTINAL: Denies abdominal pain. Denies nausea or vomiting. HEMATOLOGIC: Denies bleeding disorders. GENITOURINARY: Denies any blood in urine. SKIN: Denies pruitis. Denies rash. PHYSICAL EXAM: VITAL SIGNS: Reviewed. GENERAL: Well-developed in no acute distress. HEENT: Head is normocephalic. Pupils are equal, round. Sclerae anicteric. Mucous membranes of the mouth are moist. Neck supple. No JVD or thyromegaly LUNGS: Respirations even and unlabored. Lungs diminished bilaterally. HEART: Regular rate and rhythm. S1 and S2 heard. ABDOMEN: Soft. Nondistended. Nontender. EXTREMITIES: Normal range of motion. No clubbing or cyanosis. Peripheral pulses intact. No lower extremity edema NEUROLOGIC: Awake and alert. Oriented x 3. ASSESSMENT: Chest pain, troponin negative x 3 Acute exacerbation of chronic systolic heart failure Nonischemic cardiomyopathy Hypertension PLAN: An acute coronary event has been ruled out Continue IV lasix for today. Likely transition to oral tomorrow Change metoprolol tartrate to Toprol succinate 50 mg daily Discontinue Losartan Begin Entresto 24-26mg BID. Copay is $30 a month which patient is agreeable to. Hibiclens baths to be performed daily No EKG patches to left chest Check kidney function in AM Likely discharge home tomorrow if patient remains stable Nurse practitioner note has been reviewed by physician. Signing provider agrees with the documented findings, assessment, and plan of care. Past Medical History Past Medical History: Chest Pain / Angina, Heart Failure, Hyperlipidemia, Hypertension, Osteoarthritis (OA), Seizure Disorder, Thyroid Disorder Additional Past Medical History / Comment(s): Pt scheduled to have AICD soon, nonischemic cardiomyopathy, NIDDM type II, hypothyroid, RLS, last seizure as a teen, sinus allergies, arthritis bilateral hands, benign colon polyps. History of Any Multi-Drug Resistant Organisms: None Reported Past Surgical History: Cholecystectomy, Hernia Repair, Hysterectomy, Joint Replacement, Tonsillectomy Additional Past Surgical History / Comment(s): 2020 cardiac cath, hiatal hernia surgery, EGD, colonoscopy/benign polypectomy, total R knee arthroplasty, benign cyst removed L side of neck. Past Anesthesia/Blood Transfusion Reactions: No Reported Reaction Smoking Status: Former smoker - Past Family History Mother Family Medical History: Cancer Father Family Medical History: Cancer Additional Family Medical History / Comment(s): Father had lung cancer/he worked in a foundry. Father had heart attacks with the first on being in his 40s. Medications and Allergies Home Medications Medication Instructions Recorded Confirmed Type Aspirin [Adult Low Dose Aspirin EC] 81 mg PO DAILY 01/10/20 11/20/20 History Sertraline HCl [Zoloft] 100 mg PO HS 01/10/20 11/20/20 History Levothyroxine Sodium [Synthroid] 150 mcg PO DAILY 06/03/20 11/20/20 History rOPINIRole HCL [Requip] 4 mg PO HS 06/03/20 11/20/20 History Furosemide [Lasix] 40 mg PO DAILY #30 tab 06/05/20 11/20/20 Rx Losartan Potassium [Cozaar] 100 mg PO DAILY #30 tab 06/05/20 11/20/20 Rx Spironolactone [Aldactone] 25 mg PO DAILY #30 tab 06/05/20 11/20/20 Rx Albuterol Inhaler [Ventolin Hfa 2 puff INHALATION RT-QID PRN 11/20/20 11/20/20 History Inhaler] Atorvastatin [Lipitor] 20 mg PO HS 11/20/20 11/20/20 History Metoprolol Tartrate [Lopressor] 50 mg PO BID 11/20/20 11/20/20 History Multivitamins, Thera [Multivitamin 1 tab PO DAILY 11/20/20 11/20/20 History (formulary)] metFORMIN HCL [Glucophage] 500 mg PO BID 11/20/20 11/20/20 History Sacubitril/Valsartan [Entresto 24 1 each PO BID #60 tablet 11/21/20 Rx mg-26 mg Tablet] Allergies Allergy/AdvReac Type Severity Reaction Status Date / Time codeine AdvReac NAUSEA, Verified 11/20/20 11:10 VOMITING, SWEATY. Physical Exam Vitals: Vital Signs Temp Pulse Pulse Resp BP BP Pulse Ox 11/21/20 08:00 92 15 11/21/20 07:00 97.7 F 70 16 120/80 96 11/21/20 02:00 15 11/21/20 01:20 97.7 F 92 17 106/73 98 11/20/20 20:00 97.9 F 75 15 111/73 96 11/20/20 19:30 75 15 11/20/20 15:04 97.5 F L 72 16 110/74 95 11/20/20 14:00 71 18 131/81 98 11/20/20 13:30 77 17 131/81 97 11/20/20 13:00 71 21 131/81 98 11/20/20 12:30 80 16 131/81 98 11/20/20 11:30 71 18 96 Intake and Output 11/20/20 11/21/20 11/21/20 22:59 06:59 14:59 Intake Total 280 400 Balance 280 400 Intake: Oral 280 400 Other: Voiding Method Toilet # Voids 1 0 Weight 93.7 kg Results 11/20/20 08:27 11/20/20 08:27 Cardiac Enzymes 11/20/20 11/20/20 Range/Units 11:45 14:38 Troponin I <0.012 <0.012 (0.000-0.034) ng/mL Current Medications Generic Name Dose Route Start Last Admin Trade Name Freq PRN Reason Stop Dose Admin Acetaminophen 650 mg 11/20/20 10:22 Acetaminophen Tab 325 Mg Tab PO Q6HR PRN Mild Pain or Fever > 100.5 Aspirin 81 mg 11/21/20 09:00 11/21/20 09:34 Aspirin 81 Mg PO 81 mg DAILY CRISTO Administration Atorvastatin Calcium 20 mg 11/20/20 21:00 11/20/20 21:12 Atorvastatin 20 Mg Tab PO 20 mg HS CRISTO Administration Furosemide 40 mg 11/20/20 21:00 11/21/20 09:34 Furosemide 10 Mg/Ml 4 Ml Vial IV 40 mg Q12HR CRISTO Administration Levothyroxine Sodium 150 mcg 11/21/20 06:30 11/21/20 05:13 Levothyroxine 75 Mcg Tab PO 150 mcg DAILY@0630 CRISTO Administration Metformin HCl 500 mg 11/20/20 21:00 11/21/20 09:35 Metformin 500 Mg Tab PO 500 mg BID CRISTO Administration Metoprolol Succinate 50 mg 11/21/20 09:00 11/21/20 09:34 Metoprolol Succinate (Er) 50 Mg Tab.Er.24h PO 50 mg DAILY CRISTO Administration Naloxone HCl 0.2 mg 11/20/20 10:22 Naloxone 0.4 Mg/Ml 1 Ml Vial IV Q2M PRN Opioid Reversal Ropinirole HCl 4 mg 11/20/20 21:00 11/20/20 21:13 Ropinirole Hcl 4 Mg Tablet PO 4 mg HS CRISTO Administration Sertraline HCl 100 mg 11/20/20 21:00 11/20/20 21:11 Sertraline 100 Mg Tab PO 100 mg HS CRISTO Administration Spironolactone 25 mg 11/21/20 09:00 11/21/20 09:35 Spironolactone 25 Mg Tab PO 25 mg DAILY CRISTO Administration Intake and Output 11/20/20 11/21/20 11/21/20 22:59 06:59 14:59 Intake Total 280 400 Balance 280 400 Intake: Oral 280 400 Other: Voiding Method Toilet # Voids 1 0 Weight 93.7 kg 11/20/20 08:27 11/20/20 08:27
[2020-11-21 11:27] LABS: Glucose,Whole Blood 129 mg/dL (75-99)
[2020-11-21] MEDS: SACUBITRIL/VALSARTAN 24 MG-26 MG TABLET PO SCH ×3 (11:43→21:44)
[2020-11-21 17:11] LABS: Glucose,Whole Blood 123 mg/dL (75-99)
[2020-11-21 20:43] LABS: Glucose,Whole Blood 128 mg/dL (75-99)
[2020-11-21] MEDS: ATORVASTATIN 20 MG TAB PO SCH (21:43)
[2020-11-21] MEDS: SERTRALINE 100 MG TAB PO SCH (21:44)
[2020-11-21] MEDS: rOPINIRole HCL 4 MG TABLET PO SCH (21:44)
[2020-11-22] MEDS: LEVOTHYROXINE 75 MCG TAB PO SCH (05:30)
[2020-11-22 07:30] LABS: Glucose,Whole Blood 137 mg/dL (75-99)
--- NOTE | 2020-11-22 08:06 | P.HPIM ---
History of Present Illness H&P Date: 11/21/20 Chief Complaint: shortness of breath Phuong Rojas is a 59 year old female with PMH of nonischemic cardiomyopathy, CHF, hypertension, hyperlipidemia; she is scheduled for AICD implantation on 11/26/[address] Lopez. Pt presented to the hospital complaining of chest tightness and shortness of breath worsening over the past few days. On presentation vitals stable, CXR with cardiomegaly, EKG NSR, no ST/T changes, BNP 2640, trop negative. She was started on IV lasix and today states her shortness of breath has improved but is still present with exertion or ambulating to the bathroom. Review of Systems All systems: negative Constitutional: Reports malaise, Reports weakness, Denies chills, Denies fever Eyes: denies blurred vision, denies pain Ears, nose, mouth and throat: Denies headache, Denies sore throat Cardiovascular: Reports chest pain, Reports dyspnea on exertion, Denies shortness of breath Respiratory: Denies cough Gastrointestinal: Denies abdominal pain, Denies diarrhea, Denies nausea, Denies vomiting Genitourinary: Denies dysuria, Denies hematuria Musculoskeletal: Denies myalgias Integumentary: Denies pruritus, Denies rash Neurological: Denies numbness, Denies weakness Psychiatric: Denies anxiety, Denies depression Endocrine: Denies fatigue, Denies weight change Past Medical History Past Medical History: Chest Pain / Angina, Heart Failure, Hyperlipidemia, Hypertension, Osteoarthritis (OA), Seizure Disorder, Thyroid Disorder Additional Past Medical History / Comment(s): Pt scheduled to have AICD soon, nonischemic cardiomyopathy, NIDDM type II, hypothyroid, RLS, last seizure as a teen, sinus allergies, arthritis bilateral hands, benign colon polyps. History of Any Multi-Drug Resistant Organisms: None Reported Past Surgical History: Cholecystectomy, Hernia Repair, Hysterectomy, Joint Replacement, Tonsillectomy Additional Past Surgical History / Comment(s): 2020 cardiac cath, hiatal hernia surgery, EGD, colonoscopy/benign polypectomy, total R knee arthroplasty, benign cyst removed L side of neck. Past Anesthesia/Blood Transfusion Reactions: No Reported Reaction Smoking Status: Former smoker - Past Family History Mother Family Medical History: Cancer Father Family Medical History: Cancer Additional Family Medical History / Comment(s): Father had lung cancer/he worked in a foundry. Father had heart attacks with the first on being in his 40s. Medications and Allergies Home Medications Medication Instructions Recorded Confirmed Type Aspirin [Adult Low Dose Aspirin EC] 81 mg PO DAILY 01/10/20 11/20/20 History Sertraline HCl [Zoloft] 100 mg PO HS 01/10/20 11/20/20 History Levothyroxine Sodium [Synthroid] 150 mcg PO DAILY 06/03/20 11/20/20 History rOPINIRole HCL [Requip] 4 mg PO HS 06/03/20 11/20/20 History Furosemide [Lasix] 40 mg PO DAILY #30 tab 06/05/20 11/20/20 Rx Losartan Potassium [Cozaar] 100 mg PO DAILY #30 tab 06/05/20 11/20/20 Rx Spironolactone [Aldactone] 25 mg PO DAILY #30 tab 06/05/20 11/20/20 Rx Albuterol Inhaler [Ventolin Hfa 2 puff INHALATION RT-QID PRN 11/20/20 11/20/20 History Inhaler] Atorvastatin [Lipitor] 20 mg PO HS 11/20/20 11/20/20 History Metoprolol Tartrate [Lopressor] 50 mg PO BID 11/20/20 11/20/20 History Multivitamins, Thera [Multivitamin 1 tab PO DAILY 11/20/20 11/20/20 History (formulary)] metFORMIN HCL [Glucophage] 500 mg PO BID 11/20/20 11/20/20 History Sacubitril/Valsartan [Entresto 24 1 each PO BID #60 tablet 11/21/20 Rx mg-26 mg Tablet] Allergies Allergy/AdvReac Type Severity Reaction Status Date / Time codeine AdvReac NAUSEA, Verified 11/20/20 11:10 VOMITING, SWEATY. Physical Exam Vitals: Vital Signs Temp Pulse Resp BP Pulse Ox 11/22/20 01:05 97.5 F L 73 16 118/75 94 L 11/21/20 21:50 86 20 11/21/20 20:35 97.7 F 86 20 116/79 98 11/21/20 15:00 97.9 F 81 18 116/75 96 Intake and Output 11/21/20 11/22/20 11/22/20 22:59 06:59 14:59 Other: Voiding Method Toilet Toilet Toilet # Voids 1 1 Weight 93.8 kg General: well nourished, well developed, NAD. Vitals reviewed Eyes: PERRL, EOMI, conjunctiva normal HENT: normocephalic, mucus membranes moist Neck: supple, no JVD Lungs: normal respiratory effort, no wheezes or rales CV: Regular rate and rhythm, no murmur. Peripheral pulses 2+ Abdomen: soft, nondistended, no organomegaly Lymph: no cervical or axillary LAD Skin: warm and dry. Neuro: A&Ox3, normal mood and affect Results CBC & Chem 7: 11/20/20 08:27 11/20/20 08:27 Labs: Abnormal Lab Results - Last 24 Hours (Table) 11/21/20 11/21/20 11/21/20 Range/Units 11:25 17:10 20:42 POC Glucose (mg/dL) 129 H 123 H 128 H (75-99) mg/dL 11/22/20 Range/Units 07:19 POC Glucose (mg/dL) 137 H (75-99) mg/dL Thrombosis Risk Factor Assmnt - Choose All That Apply Any of the Below Risk Factors Present?: Yes Each Factor Represents 1 point: Heart failure (<1month), Obesity (BMI >25), Swollen legs (current) Other Risk Factors: Yes Each Risk Factor Represents 2 Points: Age 61-74 years Other congenital or acquired thrombophilia - If yes, enter type in comment: No Thrombosis Risk Factor Assessment Total Risk Factor Score: 5 Thrombosis Risk Factor Assessment Level: High Risk Assessment and Plan (1) Cardiomyopathy Current Visit: Yes Status: Acute Code(s): I42.9 - CARDIOMYOPATHY, UNSPECIFIED SNOMED Code(s): 67187232 (2) Acute on chronic systolic and diastolic heart failure, NYHA class 2 Current Visit: Yes Status: Acute Code(s): I50.43 - ACUTE ON CHRONIC COMBINED SYSTOLIC AND DIASTOLIC HRT FAIL SNOMED Code(s): 426290760681186 Plan: 1. Acute exacerbation of systolic CHF. Admit and start IV lasix. I/Os and daily weights. Cardiology consult. Continue aldactone 2. CAD. Continue metoprolol and lipitor 3. T2DM. continue metformin 4. Major depression. Continue zoloft
[2020-11-22] MEDS: METOPROLOL SUCCINATE (ER) 50 MG TAB.ER.24H PO SCH (08:36)
[2020-11-22] MEDS: FUROSEMIDE 10 MG/ML 4 ML VIAL IV SCH (08:36)
[2020-11-22] MEDS: SPIRONOLACTONE 25 MG TAB PO SCH (08:36)
[2020-11-22] MEDS: metFORMIN 500 MG TAB PO SCH (08:36)
[2020-11-22] MEDS: ASPIRIN 81 MG PO SCH (08:36)
[2020-11-22] MEDS: SACUBITRIL/VALSARTAN 24 MG-26 MG TABLET PO SCH (08:36)
[2020-11-22] MEDS ORDERED: FUROSEMIDE 40 MG TAB PO SCH (09:00)
[2020-11-22 09:08] VITALS: BP 120/75; PULSE 71; RESP 18; TEMP 98
[2020-11-22 10:43] LABS: African American GFR (CKD) 92.2 (60.0-200.0); Anion Gap 10.9 mmol/L (4.00-12.00); BUN/Creat Ratio 31.25 Ratio (12.00-20.00); Calcium 10.1 mg/dL (8.7-10.3); Carbon Dioxide 28.1 mmol/L (21.6-31.8); Non-African American GFR(CKD) 79.6 (60.0-200.0); Potassium 4.5 mmol/L (3.5-5.5)
--- NOTE | 2020-11-22 10:43 | P.PN ---
Subjective Progress Note Date: 11/22/20 HISTORY OF PRESENT ILLNESS: This is a 59 year old female with a past medical history significant for nonischemic cardiomyopathy, hypertension, hyperlipidemia, and heart failure. Patient follows in the office with Dr. Urban. Patient is scheduled for AICD implantation on 11/26/[address] Lopez. We have been asked to see the patient in consultation for chest pain. Patient examined at the bedside. Patient presented to the hospital with a chief complaint of chest tightness and shortness of breath. Patient was found to be in acute CHF and placed on IV lasix. At the time of examination this morning, the patient denies having any chest pain or pressure. She states her shortness of breath has improved but is still present with exertion or ambulating to the bathroom. EKG reveals sinus tachycardia with no signs of acute ischemia Chest xray cardiomegaly. Correlate for mild central venous congestion or interstitial pneumonitis. Laboratory data: WBC 7.2. Hemoglobin 14.7. Platelet count 298. Sodium 136. Potassium 4.6. BUN 18. Creatinine 0.63. Troponin negative 3. BNP 2640. Current home cardiac medications include Aldactone 25 mg daily, metoprolol tartrate 50mg twice a day, losartan 100 mg daily, Lasix 40 mg daily, Lipitor 20 mg daily, aspirin 81 mg daily Most recent echocardiogram obtained in May 2020 revealed ejection fraction 20-25%, trace aortic regurgitation, trace mitral regurgitation, and trace tricuspid regurgitation Cardiac catheterization history: December 2019 revealed mild nonobstructive disease involving the left circumflex. 11/22/2020 Patient examined this morning at the bedside. Patient denies chest pain or pressure. Patient states her shortness of breath has improved. Patient's vital signs are stable. PHYSICAL EXAM: VITAL SIGNS: Reviewed. GENERAL: Well-developed in no acute distress. HEENT: Head is normocephalic. Pupils are equal, round. Sclerae anicteric. Mucous membranes of the mouth are moist. Neck supple. No JVD or thyromegaly LUNGS: Respirations even and unlabored. Lungs diminished bilaterally. HEART: Regular rate and rhythm. S1 and S2 heard. ABDOMEN: Soft. Nondistended. Nontender. EXTREMITIES: Normal range of motion. No clubbing or cyanosis. Peripheral pulses intact. No lower extremity edema NEUROLOGIC: Awake and alert. Oriented x 3. ASSESSMENT: Chest pain, troponin negative x 3 Acute exacerbation of chronic systolic heart failure Nonischemic cardiomyopathy Hypertension PLAN: Continue current medications DC IV lasix. Begin oral Lasix 40 mg daily Patient may be discharged home today from a cardiac standpoint pending results of BMP this morning Patient scheduled for AICD on Wednesday with Dr. Lopez Nurse practitioner note has been reviewed by physician. Signing provider agrees with the documented findings, assessment, and plan of care. Objective - Vital Signs Vital signs: Vital Signs Temp 98.0 F 11/22/20 07:17 Pulse 71 11/22/20 07:17 Resp 18 11/22/20 07:17 BP 120/75 11/22/20 07:17 Pulse Ox 95 11/22/20 07:17 Intake & Output 11/21/20 11/22/20 11/22/20 18:59 06:59 18:59 Intake Total 720 Balance 720 Weight 93.8 kg Intake: Oral 720 Other: Voiding Method Toilet Toilet Toilet # Voids 1 - Labs CBC & Chem 7: 11/20/20 08:27 11/20/20 08:27 Labs: Abnormal Lab Results - Last 24 Hours (Table) 11/21/20 11/21/20 11/21/20 Range/Units 11:25 17:10 20:42 POC Glucose (mg/dL) 129 H 123 H 128 H (75-99) mg/dL 11/22/20 Range/Units 07:19 POC Glucose (mg/dL) 137 H (75-99) mg/dL
--- NOTE | 2020-11-22 14:35 | P.DS ---
Providers Date of admission: 11/20/20 10:22 Expected date of discharge: 11/22/20 Attending physician: Jaylen Curiel MD Primary care physician: Lizzie Iverson Hospital Course: Final Diagnoses: Acute CHF exacerbation, systolic dysfunction. Nonischemic cardiomyopathy CAD Hypertension Diabetes mellitus type 2 Depression Hospital course:Phuong Rojas is a 59 year old female with PMH of nonischemic cardiomyopathy, CHF, hypertension, hyperlipidemia; she is scheduled for AICD implantation on 11/26/[address] Lopez. Pt presented to the hospital complaining of chest tightness and shortness of breath worsening over the past few days. On presentation vitals stable, CXR with cardiomegaly, EKG NSR, no ST/T changes, BNP 2640, trop negative. She was started on IV lasix and today states her shortness of breath has improved but is still present with exertion or ambulating to the bathroom. Evaluated/treated by cardiology. Diuresed well on Lasix IV push, Entresto initiated. Tolerated well, vital signs stable without hypotension-maintaining systolic blood pressures in the 1 teens to 120s. Renal function stable. Maintaining O2 sats in the mid 90s on room air. Denies chest pain, palpitations. Exertional shortness of breath improved. Good diet intake with no nausea vomiting or diarrhea. Significant clinical improvement. Cleared by cardiology for discharge, scheduled for AICD implantation on Wednesday. Patient will be discharged home today in a stable condition with guarded prognosis. The impression and plan of care has been dictated as directed. : I performed a history and examination of this patient, discussed the same with the dictator. I agree with the dictator's note ,documented as a scribe. Any additional findings or plans will be noted. Patient Condition at Discharge: Stable Plan - Discharge Summary Discharge Rx Participant: No New Discharge Prescriptions: New Sacubitril/Valsartan [Entresto 24 mg-26 mg Tablet] 1 each PO BID #60 tablet Metoprolol Succinate (ER) [Toprol XL] 50 mg PO DAILY #30 tab.er.24h Continue Sertraline HCl [Zoloft] 100 mg PO HS Aspirin [Adult Low Dose Aspirin EC] 81 mg PO DAILY Levothyroxine Sodium [Synthroid] 150 mcg PO DAILY rOPINIRole HCL [Requip] 4 mg PO HS Spironolactone [Aldactone] 25 mg PO DAILY #30 tab Furosemide [Lasix] 40 mg PO DAILY #30 tab Albuterol Inhaler [Ventolin Hfa Inhaler] 2 puff INHALATION RT-QID PRN PRN Reason: Shortness Of Breath metFORMIN HCL [Glucophage] 500 mg PO BID Atorvastatin [Lipitor] 20 mg PO HS Multivitamins, Thera [Multivitamin (formulary)] 1 tab PO DAILY Discontinued Losartan Potassium [Cozaar] 100 mg PO DAILY #30 tab Metoprolol Tartrate [Lopressor] 50 mg PO BID Discharge Medication List Aspirin [Adult Low Dose Aspirin EC] 81 mg PO DAILY 01/10/20 [History] Sertraline HCl [Zoloft] 100 mg PO HS 01/10/20 [History] Levothyroxine Sodium [Synthroid] 150 mcg PO DAILY 06/03/20 [History] rOPINIRole HCL [Requip] 4 mg PO HS 06/03/20 [History] Furosemide [Lasix] 40 mg PO DAILY #30 tab 06/05/20 [Rx] Spironolactone [Aldactone] 25 mg PO DAILY #30 tab 06/05/20 [Rx] Albuterol Inhaler [Ventolin Hfa Inhaler] 2 puff INHALATION RT-QID PRN 11/20/20 [History] Atorvastatin [Lipitor] 20 mg PO HS 11/20/20 [History] Multivitamins, Thera [Multivitamin (formulary)] 1 tab PO DAILY 11/20/20 [History] metFORMIN HCL [Glucophage] 500 mg PO BID 11/20/20 [History] Sacubitril/Valsartan [Entresto 24 mg-26 mg Tablet] 1 each PO BID #60 tablet 11/21/20 [Rx] Metoprolol Succinate (ER) [Toprol XL] 50 mg PO DAILY #30 tab.er.24h 11/22/20 [Rx] Follow up Appointment(s)/Referral(s): Lizzie Iverson MD [Primary Care Provider] - 1-2 Days (Please call the office to schedule your appointment.) Ambulatory/Diagnostic Orders: Basic Metabolic Panel [LAB.AMB] Time Frame: 3 Days, Location: None Selected Patient Instructions/Handouts: Chest Pain (DC) Activity/Diet/Wound Care/Special Instructions: BMP pending. Entresto copay $30/month off work until after pacemaker confirm final DC recommendations and cardiology follow-up visit prior to discharge. Discharge/Stand Alone Forms: Work/School Release
== END 2020-11-22 11:00 ==
LOC: EC 08:00 → 6NMEDSUR 10:22
PROVIDERS: ADMIT Family Medicine; ATTEND Family Medicine
DX: I11.0 Hypertensive heart disease with heart failure (principal); I50.43 Acute on chronic combined systolic (congestive) and diastolic (congestive) heart failure; I25.10 Atherosclerotic heart disease of native coronary artery without angina pectoris; I42.8 Other cardiomyopathies; E11.9 Type 2 diabetes mellitus without complications; F32.9 Major depressive disorder, single episode, unspecified; F41.9 Anxiety disorder, unspecified; F90.9 Attention-deficit hyperactivity disorder, unspecified type; E78.5 Hyperlipidemia, unspecified; E03.9 Hypothyroidism, unspecified; G25.81 Restless legs syndrome; M19.042 Primary osteoarthritis, left hand; M19.041 Primary osteoarthritis, right hand; D12.6 Benign neoplasm of colon, unspecified; G40.909 Epilepsy, unspecified, not intractable, without status epilepticus; E66.9 Obesity, unspecified; Z68.35 Body mass index [BMI] 35.0-35.9, adult; M79.89 Other specified soft tissue disorders; M19.90 Unspecified osteoarthritis, unspecified site; Z90.49 Acquired absence of other specified parts of digestive tract; Z90.710 Acquired absence of both cervix and uterus; Z87.891 Personal history of nicotine dependence; Z79.82 Long term (current) use of aspirin; Z79.899 Other long term (current) drug therapy; Z79.890 Hormone replacement therapy; Z79.84 Long term (current) use of oral hypoglycemic drugs; Z88.5 Allergy status to narcotic agent; Z80.1 Family history of malignant neoplasm of trachea, bronchus and lung; Z82.49 Family history of ischemic heart disease and other diseases of the circulatory system; Z20.822 Contact with and (suspected) exposure to COVID-19
CPT/HCPCS: 96376 ×3; 96374; 99285; 36415; 93005; 83880; 80053; 80048; 83735; 84484; 85025; 85610; 85730; 87635; 71046; G0378 ×3; J1940 ×3

== ENCOUNTER → 2020-11-26 | Day surgery (SDC) | payer BC ==
[2020-11-25 09:12] VITALS: BMI 35.4
[~2020-11-26] MED LIST changes: +ACETAMINOPHEN IV (For NPO) 1,000 MG in EMPTY BAG 1 BAG IVPB ONE; +ACETAMINOPHEN TAB 325 MG TAB PO PRN; -ALPRAZolam 0.25 MG TAB PO PRN; -ALPRAZolam 0.5 MG TAB PO PRN; +HYDROcodone/APAP 5-325MG 1 EACH TAB PO PRN; +IOPAMIDOL-250 50ML BTL IV ONE; +LIDOCAINE 1% INJ 10MG/ML (20 ML MDV) ONE; +LIDOCAINE 1% INJ 10MG/ML (20 ML MDV) SQ ONE; +MIDAZOLAM 2 MG/2 ML VIAL ONE; -NITROGLYCERIN SL TABS 0.4 MG TAB SUBLINGUAL PRN; +PROPOFOL 10 MG/ML 20 ML VIAL IV ONE; +SODIUM CHLORIDE 0.9% 1,000 ML IV SCH; -SODIUM CHLORIDE 0.9% 1,000 ML in EMPTY BAG 1 BAG IV ONE; +ceFAZolin 1 GM in SODIUM CHLORIDE 0.9% 250 ML IRRIGATION PRN; +fentaNYL (PF) 50 MCG/ML 2 ML AMP ONE
[2020-11-26 06:28] LABS: Glucose,Whole Blood 141 mg/dL (75-99)
[2020-11-26 06:37] VITALS: RESP 16; TEMP 97.1
[2020-11-26 09:05] LABS: African American GFR (CKD) >90 (>60 ml/min/1.73 sqM); Anion Gap 7 mmol/L; Blood Urea Nitrogen 20 mg/dL (7-17); Calcium 8.7 mg/dL (8.4-10.2); Carbon Dioxide 30 mmol/L (22-30); Chloride 101 mmol/L (98-107); Glucose 151 mg/dL (74-99); Magnesium 1.5 mg/dL (1.6-2.3); Non-African American GFR(CKD) >90 (>60 ml/min/1.73 sqM); Potassium 3.9 mmol/L (3.5-5.1); Sodium 138 mmol/L (137-145)
[2020-11-26 11:44] VITALS: BP 108/63; PULSE 71
--- NOTE | 2020-11-26 12:26 | XR ---
EXAMINATION TYPE: XR chest 1V portable DATE OF EXAM: 11/26/2020 COMPARISON: NONE HISTORY: PACEMAKER INSERT TECHNIQUE: Single frontal view of the chest is obtained. FINDINGS: Heart is enlarged. There is a pacemaker. No pneumothorax. Diffuse osteopenia. Coarsened in terstitium. No pleural effusion. A double lead pacemaker seen with the proximal lead overlying the ri ght atrium and the distal lead overlying the right ventricle. IMPRESSION: Cardiomegaly with no evidence of pneumothorax.. Pacemaker appears in good position.
--- NOTE | 2020-11-26 15:38 | CE ---
CARDIAC ELECTROPHYSIOLOGY REPORT Phuong Rojas is a 59-year-old female who has severe cardiomyopathy, severe congestive heart failure class 3 with a wide QRS of 136 to 140 milliseconds. On guideline-directed medical treatment and experiencing heart failure symptoms despite that. She had heart failure exacerbation on good medical treatment recently. She was brought in for a BiV ICD implant. Patient was brought to the EP lab in a fasting state. Written informed consent was obtained prior to the procedure. The left shoulder area was prepped and draped as per protocol and 1% lidocaine was used for local anesthesia. The left pectoral area was prepped and draped as per protocol and 1% lidocaine was used for local anesthesia. A 4 cm incision was made parallel to the deltopectoral groove, about 1.5 cm medial to it. The incision was carried down to the level of the pectoralis muscle. A subfascial pocket was made. Hemostasis was assured. The left axillary vein was accessed at 3 separate points under fluoroscopy with some difficulty. This was a fairly large and deep pocket that was made and took some time to get through the adipose tissue and achieve hemostasis. This was achieved successfully. Once access was obtained, venous sheath was placed and coronary sinus sheath was placed in the right atrium. Attempts were made to cannulate the coronary sinus with the CS catheter. However, these attempts were virtually unsuccessful. Multiple different sheaths were used and a subselection catheter was also used to guide the sheath, but unsuccessful. Right atrial angiograms were performed to identify the coronary sinus, which we did. The coronary sinus and the middle cardiac vein had 2 separate ostia. The middle cardiac vein ostia was about at least a centimeter caudal. With right atriography, the first 2 to 3 cm of the coronary sinus was identified. The coronary sinus had a very vertical takeoff. The body was narrow. There was immediate bifurcation right at the os into a posterolateral branch. This posterolateral branch had a Marinelli's hook like configuration while main body of the coronary sinus had an almost vertical takeoff and was quite diminutive. This explained why the catheter would not go into the coronary sinus beyond the first centimeter. We successfully cannulated the middle cardiac vein, but it had a tortuosity close to the ostium and the sheath would not pass over this tortuosity. We spent over 60 minutes trying to simply cannulate and locate the coronary sinus. This was then abandoned once we were able to identify the ostium of the coronary sinus, the anatomy and the direction of the takeoff of the coronary sinus. His bundle pacing was then attempted. The His bundle sheath was placed. Screw-in lead was placed and mapping was performed. However, we were unable to narrow and normalize the QRS with selective pacing. Therefore a dual-chamber ICD was placed along with a biventricular ICD with a plan for an epicardial lead placement in the future for the LV lead. The atrial lead was screwed in the right atrial appendage. This was a [employer] model #2088TC, 52 cm in length and serial #[id number]. The P waves were greater than 5 mV, pacing impedance 650 ohms, pacing threshold 0.75 V at 0.5 milliseconds. Ten volt test was negative. The ICD lead was positioned in the RV apex. This was a [employer] model number [id number], 58 cm length and serial #[id number]. The R-waves were 7.6 mV, pacing impedance 630 ohms, pacing threshold 0.5 V at 0.5 millisecond. Both leads were secured to the underlying pectoralis muscle using 2 nonabsorbable sutures. The pocket was irrigated with antibiotic solution. Leads were connected to the generator ([employer] [id number], serial #[id number]. The LV port was planned. The device was placed in the subfascial pocket and secured with nonabsorbable suture. The wound was closed in 3 layers and dressed per protocol. DFT testing was not performed at this time and was withheld until the LV lead placement and improvement in heart failure status. IMPRESSION: 1. A very complex coronary sinus anatomy with a common ostium for the coronary sinus and posterolateral branch and a separate ostium for the middle cardiac vein. The coronary sinus had a vertical takeoff and was diminutive, the posterolateral vein had an almost Marinelli hook-like shape near the ostium. The coronary sinus catheter would not pass into the coronary sinus body. 2. The middle cardiac vein was cannulated, but the sheath would not pass once again because of Marinelli hook-like configuration close to the ostium with its tortuosity. 3. Selective His bundle pacing did not normalize the QRS. 4. Successful dual-chamber ICD implantation, but with a biventricular ICD generator. The port was planned for future use in case of an epicardial LV lead placement. Patient tolerated the procedure well without any acute complications. MMODL / IJN: [id number] /
== END ==
LOC: CATHEP 05:43
PROVIDERS: ATTEND Internal Medicine Clinical Cardiac Electrophysiology
DX: I42.8 Other cardiomyopathies (principal); I11.0 Hypertensive heart disease with heart failure; I50.22 Chronic systolic (congestive) heart failure; E78.5 Hyperlipidemia, unspecified; I25.10 Atherosclerotic heart disease of native coronary artery without angina pectoris; E11.9 Type 2 diabetes mellitus without complications; Z82.49 Family history of ischemic heart disease and other diseases of the circulatory system; Z87.891 Personal history of nicotine dependence; Z79.899 Other long term (current) drug therapy; Z88.5 Allergy status to narcotic agent; F41.9 Anxiety disorder, unspecified; F90.9 Attention-deficit hyperactivity disorder, unspecified type; Z79.82 Long term (current) use of aspirin; I25.2 Old myocardial infarction
CPT/HCPCS: 33225; 33249; 80048; 83735; 71045; C1769 ×4; C1892 ×2; C1730 ×2; C1887; C1898; C1893; C1882; C1777; J0690; J2001; J0131; Q9966

== ENCOUNTER → 2020-12-25 | Outpatient (CLI) | payer BC ==
[2020-12-26 04:00] LABS: African American GFR (CKD) 107.6 (60.0-200.0); Anion Gap 13.1 mmol/L (4.00-12.00); BUN/Creat Ratio 22.86 Ratio (12.00-20.00); Calcium 9.7 mg/dL (8.7-10.3); Carbon Dioxide 25.9 mmol/L (21.6-31.8); Non-African American GFR(CKD) 92.9 (60.0-200.0); Potassium 4.8 mmol/L (3.5-5.5)
== END | disposition home or self-care (01) ==
LOC: LABWHC1 14:53
PROVIDERS: ATTEND Nurse Practitioner Adult Health
DX: I42.8 Other cardiomyopathies (principal)
CPT/HCPCS: 36415; 80048

== ENCOUNTER → 2021-01-20 | Outpatient (CLI) | payer BC ==
[2021-01-20 15:08] LABS: Basophils # (A) 0.1 k/uL (0-0.2); Basophils % (A) 1 %; Eosinophils # (A) 0.1 k/uL (0-0.7); Eosinophils % (A) 1 %; HCT 46.6 % (34.0-46.0); HGB 14.8 gm/dL (11.4-16.0); Lymphocytes # (A) 2.3 k/uL (1.0-4.8); Lymphocytes % (A) 27 %; MCH 29.5 pg (25.0-35.0); MCHC 31.7 g/dL (31.0-37.0); MCV 93.1 fL (80.0-100.0); Monocytes # (A) 0.6 k/uL (0-1.0); Monocytes % (A) 6 %; Neutrophils # (A) 5.4 k/uL (1.3-7.7); Neutrophils % (A) 63 %; Platelet Count 295 k/uL (150-450); RBC 5.01 m/uL (3.80-5.40); RDW 12.5 % (11.5-15.5); WBC 8.6 k/uL (3.8-10.6)
[2021-01-20 15:17] LABS: African American GFR (CKD) >90 (>60 ml/min/1.73 sqM); Anion Gap 6 mmol/L; Blood Urea Nitrogen 18 mg/dL (7-17); Carbon Dioxide 32 mmol/L (22-30); Chloride 102 mmol/L (98-107); Glucose 119 mg/dL (74-99); Non-African American GFR(CKD) 83 (>60 ml/min/1.73 sqM); Potassium 5.2 mmol/L (3.5-5.1); Sodium 140 mmol/L (137-145)
[2021-01-20 15:37] LABS: Partial Thromboplastin Time 21.8 sec (22.0-30.0); Prothrombin Time 10.3 sec (9.0-12.0)
== END | disposition home or self-care (01) ==
LOC: LABPAT 14:30
PROVIDERS: ATTEND Thoracic Surgery (Cardiothoracic Vascular Surgery)
DX: Z01.812 Encounter for preprocedural laboratory examination (principal); E87.8 Other disorders of electrolyte and fluid balance, not elsewhere classified; I50.22 Chronic systolic (congestive) heart failure; R58 Hemorrhage, not elsewhere classified
CPT/HCPCS: 80051; 82565; 82947; 84520; 85025; 85610; 85730

== ENCOUNTER 2021-01-23 09:20 | Inpatient (IN) | payer BC ==
[2021-01-22 08:31] VITALS: BMI 36.6
[2021-01-23 10:17] LABS: Glucose,Whole Blood 136 mg/dL (75-99)
[2021-01-23] MEDS ORDERED: LACTATED RINGERS 1,000 ML IV ONE ×2 (10:19→14:00)
[2021-01-23] MEDS ORDERED: LIDOCAINE 1% (10MG/ML) FOR IV START INTRADERMA ONE (10:20)
[2021-01-23] MEDS ORDERED: ONDANSETRON 4 MG/2 ML VIAL ONE (10:22)
[2021-01-23] MEDS ORDERED: ONDANSETRON 4 MG/2 ML VIAL IVP ONE (10:24)
[2021-01-23] MEDS ORDERED: DEXAMETHASONE SOD PHOSPHATE 4 MG/ML 1 ML VIAL IV ONE (10:24)
[2021-01-23] MEDS ORDERED: MIDAZOLAM 2 MG/2 ML VIAL IV ONE (10:40)
[2021-01-23] MEDS ORDERED: fentaNYL (PF) 50 MCG/ML 2 ML AMP IV ONE (10:55)
[2021-01-23] MEDS ORDERED: DEXAMETHASONE SOD PHOSPHATE 10 MG/ML 1 ML VIAL ONE (11:46)
[2021-01-23] MEDS ORDERED: LIDOCAINE 2% SYG (PF) 100 MG/5 ML ONE (11:46)
[2021-01-23] MEDS ORDERED: ETOMIDATE 2 MG/ML 10 ML VIAL ONE (11:46)
[2021-01-23] MEDS ORDERED: NEOSTIGMINE 1 MG/ML 10 ML VIAL ONE (11:46)
[2021-01-23] MEDS ORDERED: PHENYLEPHRINE-0.9% NACL SYG 1,000 MCG/10 ML SYRINGE ONE (11:46)
[2021-01-23] MEDS ORDERED: GLYCOPYRROLATE 0.2 MG/ML 2 ML VIAL ONE (11:46)
[2021-01-23] MEDS ORDERED: LIDOCAINE 1% INJ 10MG/ML (20 ML MDV) ONE (11:46)
[2021-01-23] MEDS ORDERED: HYDROmorphone (PF) 1 MG/ML ONE (11:46)
[2021-01-23] MEDS ORDERED: EPINEPHrine 10 ML SYRINGE (0.1 MG/ML) ONE (11:46)
[2021-01-23] MEDS ORDERED: fentaNYL (PF) 50 MCG/ML 2 ML AMP ONE (11:46)
[2021-01-23] MEDS ORDERED: SUCCINYLCHOLINE CHLORIDE 100 MG/5 ML SYR IV ONE (11:46)
[2021-01-23] MEDS ORDERED: ROCURONIUM 10 MG/ML (5 ML VIAL) IV ONE (11:46)
[2021-01-23] MEDS ORDERED: BUPIVACAINE (PF) 0.5% 30 ML VIAL SQ ONE (12:37)
[2021-01-23] MEDS ORDERED: HYDROmorphone 0.5 MG/0.5 ML SYRINGE IVP ONE (14:43)
[2021-01-23] MEDS ORDERED: KETOROLAC 15 MG/ML 1 ML VIAL IVP ONE (14:46)
--- NOTE | 2021-01-23 15:03 | P.OP ---
Date of Procedure: 01/23/21 Preoperative Diagnosis: cardiomyopathy, congestive heart failure Status post failed transvenous LV lead implant for by the ICD Postoperative Diagnosis: same Procedure(s) Performed: left thoracoscopic placement of epicardial LV lead with upgrade of dual-chamber ICD to biV Implants: bipolar screw-in epicardial lead Anesthesia: ANN MARIE Surgeon: Thiago Rojas Estimated Blood Loss (ml): 20 IV fluids (ml): 500 Urine output (ml): 0 Pathology: none sent Condition: stable Disposition: PACU Indications for Procedure: 60-year-old female with ejection fraction of 15% presents with worsening CHF symptomatology. She underwent attempted placement of a biV dual-chamber ICD by Dr. Lopez. There were unsuccessful at placing the LV lead and referred the patient for an epicardial lead implant. Operative Findings: the heart was very enlarged. The pericardium was tense. Pleural space was relatively small. Good LV lead implant was accomplished. There were no issues with tunneling it to the ICD or upgrading the ICD. Description of Procedure: the patient was brought to the operating room, placed supine on operating table, general anesthesia was used. Anesthesiologist was unable to place a double- lumen tube via standard laryngoscopy. He was able to expose the vocal cords for me using the video laryngoscope and I was able to pass the bronchoscope through the cords and then threaded the double-lumen tube over the bronchoscope into the airway. Tube was positioned with fiberoptic bronchoscopy and ventilation proceeded without difficulty from thereon. Tube was secured and the patient was turned in the right lateral decubitus position and the left chest sterilely prepped and draped.2 one-inch incisions were performed in the posterior axillary line and the video thoracoscope was introduced single lung ventilation was initiated lung was deflated and the pericardium was visualized because of the tenseness of the pericardium it was very difficult to grasp the pericardium ultimately Bovie was used to make a small rent in the pericardium and the scissors was used to open the pericardium was some bleeding along the edges and in attempting to Bovie this the patient fibrillated. He was defibrillated 3 and successfully defibrillated. We were now able to expose the myocardium on the posterior portion of the left ventricle. A great batch bipolar screw-in lead model #[id number] serial #[id number] was inserted into the pleural space through one of these incisions and screwed into the myocardium. The lead was tested and R waves were noted around 5 mV with a pacing threshold below 1. The lead was then tunneled anteriorly into the axilla. Counterincision was made over the spot where we were able to poke the tunneler through the chest wall and the lead was pulled into this position leavingan appropriate loop in the chest cavity. The lead was secured in its exit site with a 2-0 Vicryl suture. The lung was reinflated after placement of a 28-Portuguese chest tubes through separate stab incision. Incisions were closed with layers of Vicryl suture posteriorly and skin clips were used to close the exit site from the lead with the lead coiled u nder the skin. Skin glue and dry sterile dressings were applied. Patient was then turned supine. The left anterior chest including the axilla were then sterilely prepped and draped. The old pacemaker ICD incision was opened and the ICD removed from the pocket. The small stab wound I had made for the lead was reopened and the tunneler was reapplied to the lead and the lead was tunneled into the pocket of the pace of the ICD. There was a plug in the LV slot of the ICD which was removed in the new LV lead was plugged into the slot. Lead was checked and the pacing threshold was 0.75. ICD was replaced in the pocket after irrigating with antibiotic solution and the pocket was closed with 2 layers with 3-0 Vicryl and skin glue for the stab incision in the axilla was closed with 2-0 Vicryl and a 3-0 Vicryl skin stitch and skin glue. Dry sterile dressings were applied and the patient was transferred to the recovery room in stable condition. .
[2021-01-23 15:04] LABS: Glucose,Whole Blood 238 mg/dL (75-99)
[2021-01-23] MEDS ORDERED: INSULIN ASPART (NovoLOG) 100 UNIT/ML VIAL SQ ONE (15:09)
--- NOTE | 2021-01-23 15:15 | XR ---
EXAMINATION TYPE: XR chest 1V portable DATE OF EXAM: 01/23/2021 COMPARISON: 11/26/2020 INDICATION: Lead placement check TECHNIQUE: Single frontal view of the chest is obtained. FINDINGS: The heart size is enlarged. The pulmonary vasculature is normal. Left lower lobe infiltrate is present. Electronic device overlies the left chest. Left-sided chest tube has been placed. Small pneumothorax is present. IMPRESSION: 1. Small left apical pneumothorax. Left-sided chest tubes in position. 2. Cardiomegaly. 3. Left lower lobe infiltrate
[2021-01-23] MEDS ORDERED: HYDROmorphone 0.5 MG/0.5 ML SYRINGE SQ ONE (15:19)
[2021-01-23] MEDS ORDERED: ACETAMINOPHEN TAB 325 MG TAB PO PRN (18:24)
[2021-01-23] MEDS ORDERED: IPRATROPIUM-ALBUTEROL 3 ML NEB IH PRN (18:24)
[2021-01-23] MEDS ORDERED: ALBUTEROL HFA INHALER INHALATION PRN (18:24)
[2021-01-23] MEDS ORDERED: SODIUM CHLORIDE 0.9% 1,000 ML IV SCH (18:24)
[2021-01-23] MEDS ORDERED: ONDANSETRON 4 MG/2 ML VIAL IVP PRN (18:24)
[2021-01-23] MEDS: INSULIN ASPART (NovoLOG) 100 UNIT/ML VIAL SQ SCH ×2 (18:25→20:04)
[2021-01-23] MEDS: KETOROLAC 15 MG/ML 1 ML VIAL IVP SCH ×2 (19:05→23:09)
[2021-01-23 19:33] LABS: Glucose,Whole Blood 181 mg/dL (75-99)
[2021-01-23] MEDS: HEPARIN SODIUM,PORCINE/PF 5,000 UNIT/0.5 ML SYRINGE SQ SCH (19:45)
[2021-01-23] MEDS: metFORMIN 500 MG TAB PO SCH (19:45)
[2021-01-23] MEDS: SACUBITRIL/VALSARTAN 24 MG-26 MG TABLET PO SCH (20:03)
[2021-01-23] MEDS ORDERED: rOPINIRole HCL 4 MG TABLET PO SCH (21:00)
[2021-01-23] MEDS ORDERED: ATORVASTATIN 20 MG TAB PO SCH (21:00)
[2021-01-23] MEDS ORDERED: SERTRALINE 100 MG TAB PO SCH (21:00)
[2021-01-24] MEDS: HEPARIN SODIUM,PORCINE/PF 5,000 UNIT/0.5 ML SYRINGE SQ SCH ×2 (03:14→11:59)
[2021-01-24 04:02] VITALS: RESP 18
[2021-01-24] MEDS: KETOROLAC 15 MG/ML 1 ML VIAL IVP SCH ×2 (05:47→11:59)
[2021-01-24 06:08] LABS: Glucose,Whole Blood 138 mg/dL (75-99)
[2021-01-24] MEDS ORDERED: LEVOTHYROXINE 75 MCG TAB PO SCH (06:30)
[2021-01-24] MEDS: INSULIN ASPART (NovoLOG) 100 UNIT/ML VIAL SQ SCH ×2 (06:33→12:34)
[2021-01-24] MEDS: metFORMIN 500 MG TAB PO SCH (06:33)
--- NOTE | 2021-01-24 08:56 | XR ---
EXAMINATION TYPE: XR chest 1V DATE OF EXAM: 01/24/2021 COMPARISON: 01/23/2021 HISTORY: Postop TECHNIQUE: Single frontal view of the chest is obtained. FINDINGS: Left-sided chest tube is seen. There is a cardiac device. Remains a small approximate 5% l eft-sided pneumothorax. Heart is enlarged. Atherosclerotic change aorta. No overt failure. Stable lef t lower lobe infiltrate IMPRESSION: 1. Small 5% left apical thorax. 2. Stable left lower lobe infiltrate
[2021-01-24] MEDS ORDERED: METOPROLOL SUCCINATE (ER) 50 MG TAB.ER.24H PO SCH (09:00)
[2021-01-24] MEDS ORDERED: CHOLECALCIFEROL 25 MCG (1000 IU) TABLET PO SCH (09:00)
[2021-01-24] MEDS ORDERED: MULTIVITAMINS, THERA 1 EACH TAB PO SCH (09:00)
[2021-01-24] MEDS ORDERED: MAGNESIUM OXIDE 400 MG TAB PO SCH (09:00)
[2021-01-24] MEDS ORDERED: ASPIRIN 81 MG PO SCH (09:00)
[2021-01-24] MEDS ORDERED: FUROSEMIDE 40 MG TAB PO SCH (09:00)
[2021-01-24] MEDS ORDERED: SPIRONOLACTONE 25 MG TAB PO SCH (09:00)
[2021-01-24 09:01] LABS: Basophils % (A) 0 %; Eosinophils % (A) 0 %; HCT 44.1 % (34.0-46.0); HGB 13.7 gm/dL (11.4-16.0); Lymphocytes # (A) 1.3 k/uL (1.0-4.8); Lymphocytes % (A) 11 %; MCH 29.2 pg (25.0-35.0); MCHC 31.1 g/dL (31.0-37.0); MCV 93.9 fL (80.0-100.0); Mean Platelet Volume 9.3; Monocytes # (A) 0.7 k/uL (0-1.0); Monocytes % (A) 6 %; Neutrophils # (A) 9.6 k/uL (1.3-7.7); Neutrophils % (A) 81 %; Platelet Count 235 k/uL (150-450); RDW 12.6 % (11.5-15.5); WBC 11.8 k/uL (3.8-10.6)
[2021-01-24 09:08] LABS: African American GFR (CKD) >90 (>60 ml/min/1.73 sqM); Anion Gap 6 mmol/L; Blood Urea Nitrogen 21 mg/dL (7-17); Calcium 8.8 mg/dL (8.4-10.2); Carbon Dioxide 30 mmol/L (22-30); Chloride 100 mmol/L (98-107); Glucose 143 mg/dL (74-99); Magnesium 1.7 mg/dL (1.6-2.3); Non-African American GFR(CKD) >90 (>60 ml/min/1.73 sqM); Potassium 4.8 mmol/L (3.5-5.1); Sodium 136 mmol/L (137-145)
--- NOTE | 2021-01-24 09:54 | P.CRDCN ---
History of Present Illness Consult date: 01/24/21 History of present illness: HISTORY OF PRESENT ILLNESS: This is a 60-year-old female with a past medical history significant for diabetes mellitus, hypertension, hyperlipidemia, nonischemic cardiomyopathy with ejection fraction around 20%. Patient follows in the office with Dr. Urban and Dr. Lopez. We have been asked to see the patient in consultation for "patient known to you, s/p LV lead placement". Patient underwent ICD placement with Dr. Lopez in November 2020. She had a dual chamber ICD implantation but with a biventricular ICD generator. Patient underwent left thorascopic placement of epicardial LV lead placement with upgrade of dual-chamber ICD to biventricular ICD with Dr. Rojas. Patient examined this morning. She is sitting up in the chair. She reports discomfort at the site of the left chest tube. She denies chest pain or pressure. She denies shortness of breath. Chest x-ray this morning reveals stable left lower lobe infiltrate. Small 5% left apical pneumothorax. Laboratory data: WBC 11.8. Hemoglobin 13.7. Platelet count 235. Sodium 136. Potassium 4.8. BUN 21. Creatinine 0.71. Magnesium 1.7. Current home cardiac medications include Aldactone 25 mg daily, metoprolol succinate 50 mg daily, Lasix 40 mg daily, Lipitor 20 mg daily, aspirin 81 mg daily, and Entresto (although dose unknown) Most recent echocardiogram obtained in May 2020 revealed ejection fraction 20-25%, trace mitral regurgitation, and trace tricuspid regurgitation Cardiac catheterization history: December [address] Urabn revealing mild obstructive disease involving the left circumflex. Moderately to severely impaired left ventricular systolic function with global hypokinesis. Elevated left ventricular end-diastolic pressure. REVIEW OF SYSTEMS: At the time of my exam: CONSTITUTIONAL: Denies fever or chills. HEENT: Denies blurred vision, vision changes, or eye pain. Denies hemoptysis CARDIOVASCULAR: Denies chest pain. Denies orthopnea. Denies PND. Denies palpitations RESPIRATORY: Denies shortness of breath. GASTROINTESTINAL: Denies abdominal pain. Denies nausea or vomiting. HEMATOLOGIC: Denies bleeding disorders. GENITOURINARY: Denies any blood in urine. SKIN: Denies pruitis. Denies rash. PHYSICAL EXAM: VITAL SIGNS: Reviewed. GENERAL: Well-developed in no acute distress. HEENT: Head is normocephalic. Pupils are equal, round. Sclerae anicteric. Mucous membranes of the mouth are moist. Neck supple. No JVD or thyromegaly LUNGS: Respirations even and unlabored. Lungs diminished bilaterally. Left sided chest tube noted to water seal. HEART: Regular rate and rhythm. S1 and S2 heard. ABDOMEN: Soft. Nondistended. Nontender. EXTREMITIES: Normal range of motion. No clubbing or cyanosis. Peripheral pulses intact. No lower extremity edema NEUROLOGIC: Awake and alert. Oriented x 3. ASSESSMENT: 1. Nonischemic cardiomyopathy, status post left thorascopic placement of epicardial LV lead placement with upgrade of dual-chamber ICD to biventricular ICD 2. History of dual chamber ICD implantation but with a biventricular ICD g enerator, 11/2020 3. Hypertension 4. Hyperlipidemia 5. Diabetes mellitus 6. Small apical pneumothorax PLAN: Continue post operative management per CTS Continue current cardiac medications Further recommendations pending patient course Nurse practitioner note has been reviewed by physician. Signing provider agrees with the documented findings, assessment, and plan of care. Past Medical History Past Medical History: Chest Pain / Angina, Heart Failure, Diabetes Mellitus, Hyperlipidemia, Hypertension, Osteoarthritis (OA), Seizure Disorder, Thyroid Disorder Additional Past Medical History / Comment(s): Pt scheduled to have AICD soon, nonischemic cardiomyopathy, NIDDM type II, hypothyroid, RLS, last seizure as a teen, sinus allergies, arthritis bilateral hands, SOB w/exertion, recent sleep study-"failed" per pt.-nothing ordered yet History of Any Multi-Drug Resistant Organisms: None Reported Past Surgical History: AICD, Cholecystectomy, Heart Catheterization, Hernia Repair, Hysterectomy, Joint Replacement, Tonsillectomy Additional Past Surgical History / Comment(s): 2019 cardiac cath, hiatal hernia surgery, EGD, colonoscopy/benign polypectomy, total R knee arthroplasty, benign cyst removed L side of neck. Past Anesthesia/Blood Transfusion Reactions: No Reported Reaction Type of Cardiac Device: AICD Device Placement Date:: [facility] Smoking Status: Former smoker - Past Family History Mother Family Medical History: Cancer Additional Family Medical History / Comment(s): COLON, BRAIN & SKIN CANCER Father Family Medical History: Cancer, Myocardial Infarction ([place]) Additional Family Medical History / Comment(s): . Medications and Allergies Home Medications Medication Instructions Recorded Confirmed Type Aspirin [Adult Low Dose Aspirin EC] 81 mg PO DAILY 01/10/20 01/23/21 History Sertraline HCl [Zoloft] 100 mg PO HS 01/10/20 01/23/21 History Levothyroxine Sodium [Synthroid] 150 mcg PO DAILY 06/03/20 01/23/21 History rOPINIRole HCL [Requip] 4 mg PO HS 06/03/20 01/23/21 History Furosemide [Lasix] 40 mg PO DAILY #30 tab 06/05/20 01/23/21 Rx Spironolactone [Aldactone] 25 mg PO DAILY #30 tab 06/05/20 01/23/21 Rx Albuterol Inhaler [Ventolin Hfa 2 puff INHALATION RT-QID PRN 11/20/20 01/23/21 History Inhaler] Atorvastatin [Lipitor] 20 mg PO HS 11/20/20 01/23/21 History Multivitamins, Thera [Multivitamin 1 tab PO DAILY 11/20/20 01/23/21 History (formulary)] metFORMIN HCL [Glucophage] 500 mg PO BID 11/20/20 01/23/21 History Metoprolol Succinate (ER) [Toprol 50 mg PO DAILY 11/25/20 01/23/21 History Xl] Cholecalciferol [Vitamin D3 (25 25 mcg PO DAILY 01/22/21 01/23/21 History Mcg = 1000 Iu)] Entresto(Unknown Dose) 1 tab PO BID 01/22/21 01/23/21 History Magnesium Oxide 500 mg PO DAILY 01/22/21 01/23/21 History Allergies Allergy/AdvReac Type Severity Reaction Status Date / Time codeine AdvReac NAUSEA, Verified 01/23/21 09:55 VOMITING, SWEATY. Physical Exam Vitals: Vital Signs Temp Pulse Resp BP BP Pulse Ox 01/24/21 03:59 97.9 F 64 18 99/60 96 01/24/21 00:00 97.8 F 70 16 97/57 96 01/23/21 20:00 98 F 70 18 107/69 93 L 01/23/21 16:35 69 16 94/53 98 01/23/21 16:05 68 16 85/47 98 01/23/21 15:35 69 16 93/54 96/52 98 01/23/21 15:15 69 17 95/55 98/45 97 01/23/21 15:00 69 16 90/50 94/46 100 01/23/21 14:45 69 16 90/52 94/50 100 01/23/21 14:30 72 16 101/54 99/47 98 01/23/21 14:18 98.4 F 93 18 102/57 96 01/23/21 14:02 93 18 102/57 96 01/23/21 10:01 97.6 F 69 16 132/86 95 Intake and Output 01/23/21 01/24/21 01/24/21 22:59 06:59 14:59 Intake Total 540 440 120 Output Total 120 480 Balance 420 -40 120 Intake: Oral 540 440 120 Output: Chest Tube Drainage 60 30 Chest Tube Left Upper 60 30 Drainage 60 Left Lower Chest 60 Urine 450 Other: Voiding Method Toilet Toilet # Voids 1 1 Weight 97.7 kg Results 01/24/21 08:28 01/24/21 08:28 CBC 01/24/21 Range/Units 08:28 WBC 11.8 H (3.8-10.6) k/uL RBC 4.70 (3.80-5.40) m/uL Hgb 13.7 (11.4-16.0) gm/dL Hct 44.1 (34.0-46.0) % Plt Count 235 (150-450) k/uL Comprehensive Metabolic Panel 01/23/21 01/24/21 Range/Units 10:15 08:28 Sodium 136 L (137-145) mmol/L Potassium 4.5 4.8 (3.5-5.1) mmol/L Chloride 100 (98-107) mmol/L Carbon Dioxide 30 (22-30) mmol/L BUN 21 H (7-17) mg/dL Creatinine 0.71 (0.52-1.04) mg/dL Glucose 143 H (74-99) mg/dL Calcium 8.8 (8.4-10.2) mg/dL Current Medications Generic Name Dose Route Start Last Admin Trade Name Freq PRN Reason Stop Dose Admin Acetaminophen 650 mg 01/23/21 18:24 Acetaminophen Tab 325 Mg Tab PO Q4HR PRN Fever and/ or Mild Pain Albuterol/Ipratropium 3 ml 01/23/21 18:24 Ipratropium-Albuterol 3 Ml Neb IH RT-Q1H PRN Shortness Of Breath Or Wheezing Aspirin 81 mg 01/24/21 09:00 Aspirin 81 Mg PO DAILY [facility] Atorvastatin Calcium 20 mg 01/23/21 21:00 01/23/21 19:45 Atorvastatin 20 Mg Tab PO 20 mg HS CRISTO Administration Cholecalciferol 25 mcg 01/24/21 09:00 Cholecalciferol 25 Mcg (1000 Iu) Tablet PO DAILY [facility] Furosemide 40 mg 01/24/21 09:00 Furosemide 40 Mg Tab PO DAILY [facility] Heparin Sodium (Porcine) 5,000 unit 01/23/21 20:00 01/24/21 03:14 Heparin Sodium,Porcine/Pf 5,000 Unit/0.5 Ml Syringe SQ 5,000 unit Q8H CRISTO Administration Insulin Aspart 0 unit 01/23/21 17:30 01/24/21 06:33 Insulin Aspart (Novolog) 100 Unit/Ml Vial SQ 1 unit ACHS CRISTO Administration Protocol Ketorolac Tromethamine 15 mg 01/23/21 18:24 01/24/21 05:47 Ketorolac 15 Mg/Ml 1 Ml Vial IVP 01/26/21 18:24 15 mg Q6HR CRISTO Administration Levothyroxine Sodium 150 mcg 01/24/21 06:30 01/24/21 05:46 Levothyroxine 75 Mcg Tab PO 150 mcg DAILY@0630 [facility] Administration Magnesium Oxide 400 mg 01/24/21 09:00 Magnesium Oxide 400 Mg Tab PO DAILY [facility] Metformin HCl 500 mg 01/23/21 21:00 01/24/21 06:33 Metformin 500 Mg Tab PO 500 mg AC-BID C[facility]O Administration Metoprolol Succinate 50 mg 01/24/21 09:00 Metoprolol Succinate (Er) 50 Mg Tab.Er.24h PO DAILY [facility] Multivitamins 1 each 01/24/21 09:00 Multivitamins, Thera 1 Each Tab PO DAILY [facility] Ondansetron HCl 4 mg 01/23/21 18:24 Ondansetron 4 Mg/2 Ml Vial IVP Q8HR PRN Nausea And Vomiting Ropinirole HCl 4 mg 01/23/21 21:00 01/23/21 19:45 Ropinirole Hcl 4 Mg Tablet PO 4 mg HS [facility] Administration Sacubitril/Valsartan 1 each 01/23/21 21:00 01/23/21 20:03 Sacubitril/Valsartan 24 Mg-26 Mg Tablet PO 1 each BID C[facility]O Administration Sertraline HCl 100 mg 01/23/21 21:00 01/23/21 19:45 Sertraline 100 Mg Tab PO 100 mg HS CRISTO Administration Sodium Chloride 10 ml 01/24/21 09:00 Sodium Chloride 0.9% Flush 10 Ml Syringe IV BID C[facility]O Spironolactone 25 mg 01/24/21 09:00 Spironolactone 25 Mg Tab PO DAILY [facility] Intake and Output 01/23/21 01/24/21 01/24/21 22:59 06:59 14:59 Intake Total 540 440 120 Output Total 120 480 Balance 420 -40 120 Intake: Oral 540 440 120 Output: Chest Tube Drainage 60 30 Chest Tube Left Upper 60 30 Drainage 60 Left Lower Chest 60 Urine 450 Other: Voiding Method Toilet Toilet # Voids 1 1 Weight 97.7 kg 01/24/21 08:28 01/24/21 08:28
[2021-01-24] MEDS: SACUBITRIL/VALSARTAN 24 MG-26 MG TABLET PO SCH (09:58)
--- NOTE | 2021-01-24 10:41 | XR ---
EXAMINATION TYPE: XR chest 2V DATE OF EXAM: 01/24/2021 COMPARISON: 01/24/2021 TECHNIQUE: PA and lateral views submitted. HISTORY: Post chest tube removal FINDINGS: Cardiac device seen and there is cardiomegaly with no overt failure or pleural effusion. Subcutaneous on the left noted. Residual less than 5% left apical pneumothorax. IMPRESSION: 1. Residual less than 5% left apical pneumothorax. 2. Cardiomegaly
[2021-01-24 12:08] LABS: Glucose,Whole Blood 154 mg/dL (75-99)
--- NOTE | 2021-01-24 12:50 | P.DS ---
Providers Date of admission: 01/23/21 09:20 Expected date of discharge: 01/24/21 Attending physician: Thiago Rojas Consults: 01/23/21 14:43 Consult Physician Routine Consulting Provider: Fabiano Lopez Consult Reason/Comments: known to you; s/p LV lead placement Do you want consulting provider notified?: Yes Primary care physician: Lizzie Iverson [place] Hospital Course: FINAL DIAGNOSIS: 1. Nonischemic cardiomyopathy, congestive heart failure with EF 15% 2. History of hypertension 3. History of hyperlipidemia 4. Mfo-alkopee-yfwpvhhcw diabetes PRINCIPAL PROCEDURE: 1. Left thoracoscopic placement of epicardial LV with upgrade of dual-chamber ICD to biventricular device HISTORY OF PRESENT ILLNESS: This is a 60-year-old female who follows on an outpatient basis with Dr. Urban for cardiology. She does experience exertional dyspnea and occasional dyspnea at rest. She has been followed for severe left ventricular dysfunction and underwent ICD biventricular implantation by Dr. Lopez, however he was unable to cannulate the coronary sinus with the CS catheter. A biventricular ICD was instilled with dual-chamber pacing leads placed intravascularly. The LV lead was plugged. The patient was referred to Dr. Rojas from cardiothoracic surgery. She was recommended to undergo thoracoscopic LV lead placement. The usual perioperative course was discussed in detail with the patient, all risks and benefits were explained, all questions were answered, and consent was obtained to proceed with surgery. The patient was scheduled for surgery at the earliest possible date. HOSPITAL COURSE: The patient was brought to the hospital on 01/23/2021, taken to the preoperative area, prepared in the usual fashion, and subsequently taken to the operating room where Dr. Rojas performed a left thoracoscopic placement of epicardial LV lead. Upon completion of surgery the patient was extubated and taken to the recovery room. Once stable she was admitted to 3 S. cardiac stepdown unit for further monitoring and rehabilitation. The following morning she was stable, she had minimal drainage in her chest tube and it was discontinued without incident. Repeat chest x-ray was stable. She was tolerating oral diet, her pain was controlled, and she was ready to be discharged to home on postoperative day #1. She received written and verbal instruction regarding her medications, activity restrictions, signs and symptoms requiring physician notification, and follow-up appointments. COMPLICATIONS: The patient experienced no postoperative complications. Patient Condition at Discharge: Stable Plan - Discharge Summary Discharge Rx Participant: No New Discharge Prescriptions: New Acetaminophen Tab [Tylenol] 650 mg PO Q4HR PRN tab PRN Reason: Fever and/ or Mild Pain Continue Sertraline HCl [Zoloft] 100 mg PO HS Aspirin [Adult Low Dose Aspirin EC] 81 mg PO DAILY Levothyroxine Sodium [Synthroid] 150 mcg PO DAILY rOPINIRole HCL [Requip] 4 mg PO HS Spironolactone [Aldactone] 25 mg PO DAILY #30 tab Furosemide [Lasix] 40 mg PO DAILY #30 tab Albuterol Inhaler [Ventolin Hfa Inhaler] 2 puff INHALATION RT-QID PRN PRN Reason: Shortness Of Breath metFORMIN HCL [Glucophage] 500 mg PO BID Metoprolol Succinate (ER) [Toprol XL] 50 mg PO DAILY Cholecalciferol [Vitamin D3 (25 Mcg = 1000 Iu)] 25 mcg PO DAILY Magnesium Oxide 500 mg PO DAILY Entresto(Unknown Dose) 1 tab PO BID Atorvastatin [Lipitor] 20 mg PO HS Multivitamins, Thera [Multivitamin (formulary)] 1 tab PO DAILY Discharge Medication List Aspirin [Adult Low Dose Aspirin EC] 81 mg PO DAILY 01/10/20 [History] Sertraline HCl [Zoloft] 100 mg PO HS 01/10/20 [History] Levothyroxine Sodium [Synthroid] 150 mcg PO DAILY 06/03/20 [History] rOPINIRole HCL [Requip] 4 mg PO HS 06/03/20 [History] Furosemide [Lasix] 40 mg PO DAILY #30 tab 06/05/20 [Rx] Spironolactone [Aldactone] 25 mg PO DAILY #30 tab 06/05/20 [Rx] Albuterol Inhaler [Ventolin Hfa Inhaler] 2 puff INHALATION RT-QID PRN 11/20/20 [ History] Atorvastatin [Lipitor] 20 mg PO HS 11/20/20 [History] Multivitamins, Thera [Multivitamin (formulary)] 1 tab PO DAILY 11/20/20 [History] metFORMIN HCL [Glucophage] 500 mg PO BID 11/20/20 [History] Metoprolol Succinate (ER) [Toprol XL] 50 mg PO DAILY 11/25/20 [History] Cholecalciferol [Vitamin D3 (25 Mcg = 1000 Iu)] 25 mcg PO DAILY 01/22/21 [History] Entresto(Unknown Dose) 1 tab PO BID 01/22/21 [History] Magnesium Oxide 500 mg PO DAILY 01/22/21 [History] Acetaminophen Tab [Tylenol] 650 mg PO Q4HR PRN tab 01/24/21 [Rx] Follow up Appointment(s)/Referral(s): Andriy Urban MD [STAFF PHYSICIAN] - 2 Weeks (Dr. Urban's office will call with appointment time) Thiago Rojas MD [STAFF PHYSICIAN] - 02/13/21 10:30 am Activity/Diet/Wound Care/Special Instructions: DISCHARGE INSTRUCTIONS: 1. No driving for 2 weeks, or until physician gives their ok. 2. No lifting, pushing, or pulling more than 10 pounds for 2 weeks. The physic jagdeep will advise of any restriction changes. May return to work in 2 weeks. 3. Continue pain control per as needed orders. Alternate acetaminophen (Tylenol) and ibuprofen (Motrin/Advil) for pain. 4. Continue with incentive spirometry and splinting until otherwise directed by the physician. 5. Leave chest tube dressing for 48 hours. After that, remove all dressings and shower daily. 6. Routine incision care. No powders, lotions, ointments on incisions. 7. Please call surgeon/TRADE ANALYST for temp greater than 101 F or purulent drainage from incisions. For any questions or concerns please call TRADE ANALYST's, Mariia at [phone] or Avila at [phone] Discharge Disposition: HOME SELF-CARE
[2021-01-24 13:45] VITALS: BP 116/54; PULSE 64; TEMP 96.9
== END 2021-01-24 14:42 | disposition home or self-care (01) | DRG 265 ==
LOC: 2ORMAIN 09:20 → 3SCARD 16:35
PROVIDERS: ADMIT Thoracic Surgery (Cardiothoracic Vascular Surgery); ATTEND Thoracic Surgery (Cardiothoracic Vascular Surgery)
PROC: 02HL3KZ Insertion of Defibrillator Lead into Left Ventricle, Percutaneous Approach (ICD-10-PCS; principal; 2021-01-23 11:00)
DX: Z45.02 Encounter for adjustment and management of automatic implantable cardiac defibrillator (principal); I42.8 Other cardiomyopathies; J93.83 Other pneumothorax; E11.9 Type 2 diabetes mellitus without complications; E78.5 Hyperlipidemia, unspecified; G40.909 Epilepsy, unspecified, not intractable, without status epilepticus; I11.0 Hypertensive heart disease with heart failure; I50.9 Heart failure, unspecified; Z79.82 Long term (current) use of aspirin; G25.81 Restless legs syndrome; M19.042 Primary osteoarthritis, left hand; I25.10 Atherosclerotic heart disease of native coronary artery without angina pectoris; M19.041 Primary osteoarthritis, right hand; Z79.84 Long term (current) use of oral hypoglycemic drugs; Z79.890 Hormone replacement therapy; Z20.822 Contact with and (suspected) exposure to COVID-19; Z79.899 Other long term (current) drug therapy; Z80.8 Family history of malignant neoplasm of other organs or systems; Z82.49 Family history of ischemic heart disease and other diseases of the circulatory system; Z87.891 Personal history of nicotine dependence; Z90.710 Acquired absence of both cervix and uterus; Z86.010 Personal history of colon polyps; Z96.651 Presence of right artificial knee joint; Z90.89 Acquired absence of other organs
CPT/HCPCS: 71045; 71046; 80048; 83735; 84132; 85025; 87635

== ENCOUNTER → 2021-03-10 | Outpatient (CLI) | payer BC ==
[2021-03-10 15:35] LABS: African American GFR (CKD) >90 (>60 ml/min/1.73 sqM); Blood Urea Nitrogen 18 mg/dL (7-17); Non-African American GFR(CKD) >90 (>60 ml/min/1.73 sqM)
--- NOTE | 2021-03-12 15:58 | CT ---
EXAMINATION TYPE: CT Venogram Head DATE OF EXAM: 03/10/2021 COMPARISON: CT brain 03/21/2018 INDICATION: Headache and Dizziness. Cardiac hx CHF, HTN, pacemaker. DLP: 2129.30 mGycm, Automated exposure control for dose reduction was used. CONTRAST: 100 mL Isovue-370 CT of the brain is performed utilizing 3 mm thick sections through the posterior fossa and 3 mm thick sections through the remaining calvarium. Study is performed within 24 hours of arrival to the hosp ital. Contrast was timed for evaluation of the venous system. No abnormal hyperdensity is present to suggest an acute intracranial hemorrhage. No mass lesion is evident. No acute infarcts are evident. Ventricles and sulci are appropriate for the patient age. Paranasal sinuses and mastoid air cells within the [id number] are clear. No suspicious enhancement is evident. Contrast appears well-visualized through the arterial system. Three-D reconstructed images performed on a separate computer by the technologist are reviewed. Sagit erlinda sinus as visualized appears without large filling defects. There may be some difficulty visualizi ng completely filled sagittal sinus due to contrast timing. There is some irregularity within the mid sagittal sinus, coronal image series 17 image 15. However, this could be artifact. No large venous i nfarcts are identified. Filling defect in additional planes is not evident. Straight sinus is intact. Sigmoid sinuses appear unremarkable venous system appears symmetrical. IMPRESSIONS: 1. Brain venogram most likely is within normal limits. There is some limitation due to contrast doug ing. Artifact is suspected at the mid sagittal sinus. Consider follow-up exam.
== END | disposition home or self-care (01) ==
LOC: RADCTMAIN 14:44
PROVIDERS: ATTEND Family Medicine
DX: R51.9 Headache, unspecified (principal); R42 Dizziness and giddiness; Z95.0 Presence of cardiac pacemaker
CPT/HCPCS: 82565; 84520; 70496; 36415; Q9967

== ENCOUNTER 2021-10-01 17:16 | Emergency (ER) | payer BC ==
[2021-10-01 17:28] VITALS: TEMP 97.3
[2021-10-01] MEDS ORDERED: ONDANSETRON 4 MG/2 ML VIAL IVP STA (17:56)
[2021-10-01] MEDS ORDERED: MORPHINE SULFATE 4 MG/ML SYRINGE IV STA (17:56)
--- NOTE | 2021-10-01 18:05 | ED ---
Abdominal Pain HPI - General Source: patient, RN notes reviewed Mode of arrival: ambulatory Limitations: no limitations - History of Present Illness MD Complaint: abdominal pain, flank pain Onset/Timin -: days(s) <Jaleel Tam - Last Filed: 10/01/21 21:24> <Joan Hunter - Last Filed: 10/03/21 22:49> - General Chief Complaint: Abdominal Pain Stated Complaint: right side abd & back pain Time Seen by Provider: 10/01/21 17:45 - History of Present Illness Initial Comments: This is a pleasant 60-year-old female presents to emergency department complaining of right upper quadrant abdominal pain and right flank pain. Pat ient states it seems to be in the right flank starting in the back and radiates around to the right upper quadrant. Patient has had nausea but no vomiting. No changes in bowel movement or urination. Patient also complaining of some increased shortness of breath. She states she usually has shortness of breath as she has a previous cardiac history. Patient states she had a history of atrial fibrillation but now has an implanted cardiac pacemaker. Patient takes rate control medications as well as aspirin. Patient previously has had a pulmonary embolism. Patient denies any fever. Denies any productive cough. Sharp/dull right flank pain which has been constant since Wednesday. No allevi ating or exacerbating factors. Initially patient states that movement might make the pain worse. However pain came on at rest and does not seem to be related to exertion. Nausea without vomiting. Radiates from the right mid back area around to the right upper quadrant. (Jaleel Tam) - Related Data Home Medications Medication Instructions Recorded Confirmed Aspirin [Adult Low Dose Aspirin EC] 81 mg PO DAILY 01/10/20 01/23/21 Sertraline HCl [Zoloft] 100 mg PO HS 01/10/20 01/23/21 Levothyroxine Sodium [Synthroid] 150 mcg PO DAILY 06/03/20 01/23/21 rOPINIRole HCL [Requip] 4 mg PO HS 06/03/20 01/23/21 Albuterol Inhaler [Ventolin Hfa 2 puff INHALATION RT-QID PRN 11/20/20 01/23/21 Inhaler] Atorvastatin [Lipitor] 20 mg PO HS 11/20/20 01/23/21 Multivitamins, Thera [Multivitamin 1 tab PO DAILY 11/20/20 01/23/21 (formulary)] metFORMIN HCL [Glucophage] 500 mg PO BID 11/20/20 01/23/21 Metoprolol Succinate (ER) [Toprol 50 mg PO DAILY 11/25/20 01/23/21 XL] Cholecalciferol [Vitamin D3 (25 25 mcg PO DAILY 01/22/21 01/23/21 Mcg = 1000 Iu)] Entresto(Unknown Dose) 1 tab PO BID 01/22/21 01/23/21 Magnesium Oxide 500 mg PO DAILY 01/22/21 01/23/21 Previous Rx's Medication Instructions Recorded Furosemide [Lasix] 40 mg PO DAILY #30 tab 06/05/20 Spironolactone [Aldactone] 25 mg PO DAILY #30 tab 06/05/20 Acetaminophen Tab [Tylenol] 650 mg PO Q4HR PRN tab 01/24/21 Cyclobenzaprine [Flexeril] 10 mg PO TID PRN #20 tab 10/01/21 Docusate [Colace] 100 mg PO DAILY #30 capsule 10/01/21 HYDROcodone/APAP 5-325MG [[place] 1 tab PO Q6HR PRN 3 Days #12 tab 10/01/21 5-325] Allergies Allergy/AdvReac Type Severity Reaction Status Date / Time codeine AdvReac NAUSEA, Verified 10/01/21 17:26 VOMITING, SWEATY. Review of Systems ROS Other: All systems not noted in ROS Statement are negative. <Jaleel Tam - Last Filed: 10/01/21 21:24> ROS Other: All systems not noted in ROS Statement are negative. <Joan Hunter - Last Filed: 10/03/21 22:49> ROS Statement: Those systems with pertinent positive or pertinent negative responses have been documented in the HPI. Past Medical History Past Medical History: Chest Pain / Angina, Heart Failure, Hyperlipidemia, H ypertension, Osteoarthritis (OA), Seizure Disorder, Thyroid Disorder Additional Past Medical History / Comment(s): Pt scheduled to have AICD soon, nonischemic cardiomyopathy, NIDDM type II, hypothyroid, RLS, last seizure as a teen, sinus allergies, arthritis bilateral hands, benign colon polyps. History of Any Multi-Drug Resistant Organisms: None Reported Past Surgical History: Cholecystectomy, Hernia Repair, Hysterectomy, Joint Replacement, Tonsillectomy Additional Past Surgical History / Comment(s): 2019 cardiac cath, hiatal hernia surgery, EGD, colonoscopy/benign polypectomy, total R knee arthroplasty, benign cyst removed L side of neck. Past Anesthesia/Blood Transfusion Reactions: No Reported Reaction Type of Cardiac Device: AICD Device Placement Date:: [facility] Past Psychological History: ADD/ADHD, Anxiety, Depression Smoking Status: Never smoker Past Alcohol Use History: Occasional Past Drug Use History: None Reported - Past Family History Mother Family Medical History: Cancer Additional Family Medical History / Comment(s): COLON, BRAIN & SKIN CANCER Father Family Medical History: Cancer, Myocardial Infarction ([place]) Additional Family Medical History / Comment(s): . <Jaleel Tam Filed: 10/01/21 21:24> General Exam Limitations: no limitations General appearance: alert, in distress Head exam: Present: atraumatic, normocephalic, normal inspection Eye exam: Present: normal appearance, PERRL, EOMI. Absent: scleral icterus, conjunctival injection, periorbital swelling ENT exam: Present: normal exam, normal oropharynx, mucous membranes moist, TM's normal bilaterally Neck exam: Present: normal inspection, full ROM. Absent: tenderness, meningismus, lymphadenopathy Respiratory exam: Present: normal lung sounds bilaterally. Absent: respiratory distress, wheezes, rales, rhonchi, stridor, chest wall tenderness, accessory muscle use, decreased breath sounds, prolonged expiratory Cardiovascular Exam: Present: regular rate, normal rhythm, normal heart sounds, other (Heart rate was 76 by auscultation as I assessed the patient.). Absent: systolic murmur, diastolic murmur, rubs, gallop, clicks GI/Abdominal exam: Present: soft, normal bowel sounds, other (No significant tenderness to palpation). Absent: distended, tenderness, guarding, rebound, rigid Extremities exam: Present: normal inspection, full ROM, normal capillary refill. Absent: tenderness, pedal edema, joint swelling, calf tenderness Back exam: Present: normal inspection Neurological exam: Present: alert, oriented X3, CN II-XII intact Psychiatric exam: Present: normal affect, normal mood Skin exam: Present: warm, dry, intact, normal color, other (No rash or lesion). Absent: rash, erythema <Jaleel Tam Filed: 10/01/21 21:24> - General Exam Comments Initial Comments: This is a 60-year-old female who is in mild distress secondary to right flank pain. Vital signs noted, patient is tachycardic. (Jaleel Tam) Course <Jaleel Tam - Last Filed: 10/01/21 21:24> Vital Signs 10/01/21 10/01/21 17:26 21:11 Temperature 97.3 F L Pulse Rate 125 H 63 Respiratory 20 16 Rate Blood Pressure 130/78 145/97 O2 Sat by Pulse 98 98 Oximetry - Reevaluation(s) Reevaluation #1: 10/01/21 21:24 Medical record is reviewed Symptoms somewhat better. However the patient still has pain. I did stand the patient up and took her through a repeat physical examination. Abdomen was relatively benign. Patient did have reproducible symptomology with movement of the torso, both axial rotation, extension, and for flexion. This does raise a suspicion of osteoskeletal etiology. Patient is informed of results and questions answered Patient in no distress (Jaleel Tam) Reevaluation #2: 10/01/21 21:31 Heart rate reevaluated. Rate of 68 on auscultation and radial pulse (Jaleel Tam) Medical Decision Making - Lab Data Result diagrams: 10/01/21 18:14 10/01/21 18:14 - EKG Data -: EKG Interpreted by De <Jaleel Tam - Last Filed: 10/01/21 21:24> - Lab Data Result diagrams: 10/01/21 18:14 10/01/21 18:14 <Joan Hunter - Last Filed: 10/03/21 22:49> - Medical Decision Making Patient complains of right flank pain. No serious exasperating or alleviating factors. Differential is wide in this case. And is status post cholecystectomy. This makes biliary disease unlikely. Renal stone versus other intra-abdominal etiology is possible. However patient does have increased shortness of breath sensation and tachycardia. Pulmonary embolism also within the differential. Unlikely be cardiac ischemic pain given the presentation. Patient is afebrile. Pneumonia less likely. The case was discussed in detail with ED attending physician. Presentation, fi ndings, treatment plan discussed in detail. Supervising physician is Dr. Hunter Patient's triage heart rate of 125 was not seen on recheck or on EKG. I suspect that this was an air. Patient does not appear to be ill or toxic. Diagnostic findings here show no evidence of acute infectious process. No evidence of cardiac disease, no pulmonary embolism. No evidence of urinary tract infection or panarthritis. No renal stone. Workup was essentially negative. Patient did have reproducible pain on reevaluation with movement of the torso. This is likely musculoskeletal pain. We'll treat with 3 days of pain medication. 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 We'll keep her on stool softeners. Follow up with regular physician. Patient called morning without fail. Follow-up with your regular physician as directed. Return to the ER immediately if any symptoms worsen, new symptoms arise, or any other problems develop. Patient was informed about all spurious findings on diagnostics to include mild CHF appearance on CT of the chest. (Jaleel Tam) I was available for consultation in the emergency department. The history and physical exam were done by the midlevel provider. I was consulted for this patients care. I reviewed the case with the midlevel provider and based on their presentation of the patient, I agree with the assessment, medical decision making and plan of care as documented. Chart was dictated using [employer] dictation software. Attempts were made to correct any dictation errors however some typographical errors may persist. Patient was seen during a national state of emergency due to the Covid-19 pandemic. (Joan Hunter) - Lab Data Lab Results 10/01/21 10/01/21 10/01/21 Range/Units 18:00 18:14 18:14 WBC 8.2 (3.8-10.6) k/uL RBC 4.94 (3.80-5.40) m/uL Hgb 15.4 (11.4-16.0) gm/dL Hct 46.4 H (34.0-46.0) % MCV 94.1 (80.0-100.0) fL MCH 31.1 (25.0-35.0) pg MCHC 33.1 (31.0-37.0) g/dL RDW 11.8 (11.5-15.5) % Plt Count 274 (150-450) k/uL MPV 9.3 Neutrophils % 65 % Lymphocytes % 26 % Monocytes % 6 % Eosinophils % 1 % Basophils % 1 % Neutrophils # 5.3 (1.3-7.7) k/uL Lymphocytes # 2.1 (1.0-4.8) k/uL Monocytes # 0.5 (0-1.0) k/uL Eosinophils # 0.1 (0-0.7) k/uL Basophils # 0.1 (0-0.2) k/uL D-Dimer (<0.60) mg/L FEU Sodium 136 L (137-145) mmol/L Potassium 3.8 (3.5-5.1) mmol/L Chloride 103 (98-107) mmol/L Carbon Dioxide 25 (22-30) mmol/L Anion Gap 8 mmol/L BUN 14 (7-17) mg/dL Creatinine 0.62 (0.52-1.04) mg/dL Est GFR (CKD-EPI)AfAm >90 (>60 ml/min/1.73 sqM) Est GFR (CKD-EPI)NonAf >90 (>60 ml/min/1.73 sqM) Glucose 147 H (74-99) mg/dL Plasma Lactic Acid Yuan (0.7-2.0) mmol/L Calcium 9.4 (8.4-10.2) mg/dL Total Bilirubin 0.8 (0.2-1.3) mg/dL AST 31 (14-36) U/L ALT 24 (4-34) U/L Alkaline Phosphatase 67 (38-126) U/L Troponin I (0.000-0.034) ng/mL Total Protein 7.0 (6.3-8.2) g/dL Albumin 4.0 (3.5-5.0) g/dL Amylase 53 (30-110) U/L Lipase 60 (23-300) U/L Urine Color Yellow Urine Appearance Cloudy H (Clear) Urine pH 5.5 (5.0-8.0) Ur Specific [place] 1.028 (1.001-1.035) Urine Protein 1+ H (Negative) Urine Glucose (UA) Negative (Negative) Urine Ketones Trace H (Negative) Urine Blood Negative (Negative) Urine Nitrite Negative (Negative) Urine Bilirubin 1+ H (Negative) Urine Urobilinogen 2.0 (<2.0) mg/dL Ur Leukocyte Esterase Negative (Negative) Urine RBC <1 (0-5) /hpf Urine WBC 2 (0-5) /hpf Ur Squamous Epith Cells 19 H (0-4) /hpf Hyaline Casts 3 H (0-2) /lpf Urine Mucus Few H (None) /hpf Coronavirus (PCR) (Not Detectd) 10/01/21 10/01/21 10/01/21 Range/Units 18:14 18:14 18:14 WBC (3.8-10.6) k/uL RBC (3.80-5.40) m/uL Hgb (11.4-16.0) gm/dL Hct (34.0-46.0) % MCV (80.0-100.0) fL MCH (25.0-35.0) pg MCHC (31.0-37.0) g/dL RDW (11.5-15.5) % Plt Count (150-450) k/uL MPV Neutrophils % % Lymphocytes % % Monocytes % % Eosinophils % % Basophils % % Neutrophils # (1.3-7.7) k/uL Lymphocytes # (1.0-4.8) k/uL Monocytes # (0-1.0) k/uL Eosinophils # (0-0.7) k/uL Basophils # (0-0.2) k/uL D-Dimer 0.94 H (<0.60) mg/L FEU Sodium (137-145) mmol/L Potassium (3.5-5.1) mmol/L Chloride (98-107) mmol/L Carbon Dioxide (22-30) mmol/L Anion Gap mmol/L BUN (7-17) mg/dL Creatinine (0.52-1.04) mg/dL Est GFR (CKD-EPI)AfAm (>60 ml/min/1.73 sqM) Est GFR (CKD-EPI)NonAf (>60 ml/min/1.73 sqM) Glucose (74-99) mg/dL Plasma Lactic Acid Yuan 0.9 (0.7-2.0) mmol/L Calcium (8.4-10.2) mg/dL Total Bilirubin (0.2-1.3) mg/dL AST (14-36) U/L ALT (4-34) U/L Alkaline Phosphatase (38-126) U/L Troponin I (0.000-0.034) ng/mL Total Protein (6.3-8.2) g/dL Albumin (3.5-5.0) g/dL Amylase (30-110) U/L Lipase (23-300) U/L Urine Color Urine Appearance (Clear) Urine pH (5.0-8.0) Ur Specific [place] (1.001-1.035) Urine Protein (Negative) Urine Glucose (UA) (Negative) Urine Ketones (Negative) Urine Blood (Negative) Urine Nitrite (Negative) Urine Bilirubin (Negative) Urine Urobilinogen (<2.0) mg/dL Ur Leukocyte Esterase (Negative) Urine RBC (0-5) /hpf Urine WBC (0-5) /hpf Ur Squamous Epith Cells (0-4) /hpf Hyaline Casts (0-2) /lpf Urine Mucus (None) /hpf Coronavirus (PCR) Not Detected (Not Detectd) 10/01/21 Range/Units 18:14 WBC (3.8-10.6) k/uL RBC (3.80-5.40) m/uL Hgb (11.4-16.0) gm/dL Hct (34.0-46.0) % MCV (80.0-100.0) fL MCH (25.0-35.0) pg MCHC (31.0-37.0) g/dL RDW (11.5-15.5) % Plt Count (150-450) k/uL MPV Neutrophils % % Lymphocytes % % Monocytes % % Eosinophils % % Basophils % % Neutrophils # (1.3-7.7) k/uL Lymphocytes # (1.0-4.8) k/uL Monocytes # (0-1.0) k/uL Eosinophils # (0-0.7) k/uL Basophils # (0-0.2) k/uL D-Dimer (<0.60) mg/L FEU Sodium (137-145) mmol/L Potassium (3.5-5.1) mmol/L Chloride (98-107) mmol/L Carbon Dioxide (22-30) mmol/L Anion Gap mmol/L BUN (7-17) mg/dL Creatinine (0.52-1.04) mg/dL Est GFR (CKD-EPI)AfAm (>60 ml/min/1.73 sqM) Est GFR (CKD-EPI)NonAf (>60 ml/min/1.73 sqM) Glucose (74-99) mg/dL Plasma Lactic Acid Yuan (0.7-2.0) mmol/L Calcium (8.4-10.2) mg/dL Total Bilirubin (0.2-1.3) mg/dL AST (14-36) U/L ALT (4-34) U/L Alkaline Phosphatase (38-126) U/L Troponin I <0.012 (0.000-0.034) ng/mL Total Protein (6.3-8.2) g/dL Albumin (3.5-5.0) g/dL Amylase (30-110) U/L Lipase (23-300) U/L Urine Color Urine Appearance (Clear) Urine pH (5.0-8.0) Ur Specific [place] (1.001-1.035) Urine Protein (Negative) Urine Glucose (UA) (Negative) Urine Ketones (Negative) Urine Blood (Negative) Urine Nitrite (Negative) Urine Bilirubin (Negative) Urine Urobilinogen (<2.0) mg/dL Ur Leukocyte Esterase (Negative) Urine RBC (0-5) /hpf Urine WBC (0-5) /hpf Ur Squamous Epith Cells (0-4) /hpf Hyaline Casts (0-2) /lpf Urine Mucus (None) /hpf Coronavirus (PCR) (Not Detectd) - EKG Data EKG Comments: EKG done at 1859 ED attending physician reveals a paced rhythm at 75 bpm. No evidence of acute ST changes. Patient does have flipped T waves. When compared to previous EKG. Rhythm is now paced. Intervals are normal. (Jaleel Tam) Disposition Is patient prescribed a controlled substance at d/c from ED?: Yes When asked, does pt state using other controlled substances?: No If prescribed controlled substance>3 days was MAPS reviewed?: Yes If opioid is for acute pain is fill amount 7 days or less?: No If Rx opioid, was Start Talking consent form obtained?: Yes Time of Disposition: 21:28 <Jaleel Tam - Last Filed: 10/01/21 21:24> <Joan Hunter - Last Filed: 10/03/21 22:49> Clinical Impression: Acute right flank pain Disposition: HOME SELF-CARE Condition: Good Instructions (If sedation given, give patient instructions): Flank Pain (ED) Additional Instructions: Avoid heavy lifting, bending, twisting. Call your regular doctor tomorrow morning for follow-up. Follow-up with your regular physician as directed. Return to the ER immediately if any symptoms worsen, new symptoms arise, or any other problems develop. Prescriptions: Docusate [Colace] 100 mg PO DAILY #30 capsule Cyclobenzaprine [Flexeril] 10 mg PO TID PRN #20 tab PRN Reason: Spasms HYDROcodone/APAP 5-325MG [[place] 5-325] 1 tab PO Q6HR PRN 3 Days #12 tab PRN Reason: Pain Referrals: Lizzie Iverson MD [Primary Care Provider] - 1-2 days
[2021-10-01 18:20] LABS: Basophils # (A) 0.1 k/uL (0-0.2); Basophils % (A) 1 %; Eosinophils # (A) 0.1 k/uL (0-0.7); Eosinophils % (A) 1 %; HCT 46.4 % (34.0-46.0); HGB 15.4 gm/dL (11.4-16.0); Lymphocytes # (A) 2.1 k/uL (1.0-4.8); Lymphocytes % (A) 26 %; MCH 31.1 pg (25.0-35.0); MCHC 33.1 g/dL (31.0-37.0); MCV 94.1 fL (80.0-100.0); Mean Platelet Volume 9.3; Monocytes # (A) 0.5 k/uL (0-1.0); Monocytes % (A) 6 %; Neutrophils # (A) 5.3 k/uL (1.3-7.7); Neutrophils % (A) 65 %; Platelet Count 274 k/uL (150-450); RBC 4.94 m/uL (3.80-5.40); RDW 11.8 % (11.5-15.5); WBC 8.2 k/uL (3.8-10.6)
[2021-10-01 18:30] LABS: Appearance,Urine Cloudy (Clear); Bilirubin,Urine 1+ (Negative); Blood,Urine Negative (Negative); Color,Urine Yellow; Glucose,Urine (UA) Negative (Negative); Hyaline Casts,Urine 3 /lpf (0-2); Ketones,Urine Trace (Negative); Leukocyte Esterase,Urine Negative (Negative); Mucus,Urine Few /hpf; Nitrite,Urine Negative (Negative); PH, Urine 5.5 (5.0-8.0); Protein,Urine 1+ (Negative); RBC,Urine <1 /hpf (0-5); Specific Gravity,Urine 1.028 (1.001-1.035); Squamous Epithelial Cell,Urine 19 /hpf (0-4); WBC,Urine 2 /hpf (0-5)
[2021-10-01 18:35] LABS: ALT 24 U/L (4-34); AST 31 U/L (14-36); African American GFR (CKD) >90 (>60 ml/min/1.73 sqM); Alkaline Phosphatase 67 U/L (38-126); Amylase 53 U/L (30-110); Anion Gap 8 mmol/L; Blood Urea Nitrogen 14 mg/dL (7-17); Calcium 9.4 mg/dL (8.4-10.2); Carbon Dioxide 25 mmol/L (22-30); Chloride 103 mmol/L (98-107); Glucose 147 mg/dL (74-99); Lipase 60 U/L (23-300); Non-African American GFR(CKD) >90 (>60 ml/min/1.73 sqM); Potassium 3.8 mmol/L (3.5-5.1); Sodium 136 mmol/L (137-145); Total Bilirubin 0.8 mg/dL (0.2-1.3)
--- NOTE | 2021-10-01 18:58 | XR ---
EXAMINATION TYPE: XR chest 2V DATE OF EXAM: 10/01/2021 COMPARISON: 01/24/2021 HISTORY: Abdominal pain TECHNIQUE: FINDINGS: Heart is enlarged. There is no heart failure. Costophrenic angles are clear. There are no h ilar masses. There is left axillary pacemaker. Bony thorax is intact. IMPRESSION: No active cardiopulmonary disease. Mild cardiomegaly. No change.
--- NOTE | 2021-10-01 19:01 | XR ---
EXAMINATION TYPE: XR KUB DATE OF EXAM: 10/01/2021 COMPARISON: NONE HISTORY: Epigastric pain TECHNIQUE: 2 views upright FINDINGS: There is no sign of intestinal obstruction or pneumoperitoneum. Fecal pattern is normal. Th ere are clips from cholecystectomy. Lung bases are clear. There is no evidence of a mass. There are n o pathologic calcifications over the kidneys. IMPRESSION: Nonacute abdomen.
--- NOTE | 2021-10-01 19:54 | CT ---
EXAMINATION TYPE: CT angio chest DATE OF EXAM: 10/01/2021 COMPARISON: 06/03/2020 HISTORY: RT flank pain, chest wall, SOB, elevated d-dimer CT DLP: 405.9 mGycm Automated exposure control for dose reduction was used. CONTRAST: Performed with IV Contrast, patient injected with 100 mL of Isovue 370. Images obtained from the thoracic inlet to the diaphragm with IV contrast. There are Three-D postproc essed images. The lungs are clear of consolidation. There is no evidence of a pulmonary mass. Heart is borderline e nlarged. There is no pericardial effusion. There is no pleural effusion. There are no hilar masses. There is no mediastinal adenopathy. Thoracic aorta is intact. There is no aneurysm or dissection. There is normal contrast opacification of the pulmonary arteries. There are no filling defects. The t horacic spine is intact. There is no compression fracture. Sternum is intact. Upper abdominal soft tissues are intact. There are clips from cholecystectomy. IMPRESSION: No evidence of pulmonary embolism. Mild cardiomegaly. There is clearing of the pleural fluid and appa rent congestive heart failure compared to old exam.
[2021-10-01 21:11] VITALS: BP 145/97; PULSE 63; RESP 16
--- NOTE | 2021-10-01 21:17 | CT ---
EXAMINATION TYPE: CT abdomen pelvis wo con DATE OF EXAM: 10/01/2021 COMPARISON: None HISTORY: right flank pain CT DLP: 1019.4 mGycm Automated exposure control for dose reduction was used. Images obtained from the diaphragm to the floor the pelvis with no contrast. The lung bases are clear of consolidation. There is no pleural effusion. Heart is borderline enlarged . There is no pericardial effusion. There are clips from cholecystectomy. Liver spleen and stomach pa ncreas appear intact. There are clips from cholecystectomy. The bile ducts are not dilated. There is no adrenal mass. Kidneys show satisfactory contrast opacification. There is no hydronephrosi s. Contrast was from previous CT scan of the chest. The ureters are not dilated. There is no retroper itoneal adenopathy. The appendix is posterior and appears normal. There are multiple sigmoid divertic roxy. There is no diverticulitis. There is contrast in the urinary bladder. There is no inguinal herni a. There is no evidence of a pelvic mass. There is no free fluid in the pelvis. There is hysterectomy. Lumbar vertebrae have normal alignment. There is vacuum disc in the mid and lo wer lumbar spine. There is no compression fracture. Bony pelvis is intact. The hip joints are intact. IMPRESSION: Normal appendix. No evidence of renal stone or obstruction. Sigmoid diverticulosis without diverticul itis.
== END 2021-10-01 21:41 | disposition home or self-care (01) ==
LOC: EC 17:16
DX: R10.11 Right upper quadrant pain (principal); I11.0 Hypertensive heart disease with heart failure; I50.9 Heart failure, unspecified; E78.5 Hyperlipidemia, unspecified; M19.90 Unspecified osteoarthritis, unspecified site; E07.9 Disorder of thyroid, unspecified; F90.9 Attention-deficit hyperactivity disorder, unspecified type; F41.9 Anxiety disorder, unspecified; F32.A Depression, unspecified; Z79.82 Long term (current) use of aspirin; Z79.84 Long term (current) use of oral hypoglycemic drugs; Z88.5 Allergy status to narcotic agent; Z90.49 Acquired absence of other specified parts of digestive tract; Z90.710 Acquired absence of both cervix and uterus; Z96.651 Presence of right artificial knee joint
CPT/HCPCS: 99285; 96374; 96375; 36415; 93005; 85379; 80053; 82150; 83605; 83690; 84484; 85025; 81001; 87635; 71046; 74018; 71275; 74176; J2270; J2405; Q9967

== ENCOUNTER 2021-10-05 03:19 | Emergency (ER) | payer BC ==
[2021-10-05 03:25] VITALS: BP 149/78; PULSE 78; RESP 16; TEMP 97.7
[2021-10-05] MEDS ORDERED: hydrOXYzine HCL 25 MG TAB PO STA (03:46)
[2021-10-05] MEDS ORDERED: HYDROcodone/APAP 10-325MG 1 EACH TAB PO ONE (03:46)
[2021-10-05] MEDS ORDERED: ONDANSETRON ODT 4 MG TAB PO STA (03:46)
[2021-10-05] MEDS ORDERED: valACYclovir 500 MG TAB PO STA (03:47)
--- NOTE | 2021-10-05 03:47 | ED ---
General Adult HPI - General Chief complaint: Recheck/Abnormal Lab/Rx Stated complaint: Back/Abdominal Pain Time Seen by Provider: 10/05/21 03:20 Source: patient, family Mode of arrival: ambulatory Limitations: no limitations - History of Present Illness Initial comments: 60-year-old female with multiple medical conditions presents to the emergency department with reported right flank pain. She was seen here 4 days ago for similar complaint had a thorough workup performed. She states that today she began developing a rash over the right flank and realized that her symptoms must have been due to the shingles. She was afraid to take her Ashford that she was prescribed as she is unsure if she is can have a reaction. States that she is ALLERGIC to codeine. Denies any new symptoms other than the rash. No other alleviating, precipitating or modifying factors - Related Data Home Medications Medication Instructions Recorded Confirmed Aspirin [Adult Low Dose Aspirin EC] 81 mg PO DAILY 01/10/20 01/23/21 Sertraline HCl [Zoloft] 100 mg PO HS 01/10/20 01/23/21 Levothyroxine Sodium [Synthroid] 150 mcg PO DAILY 06/03/20 01/23/21 rOPINIRole HCL [Requip] 4 mg PO HS 06/03/20 01/23/21 Albuterol Inhaler [Ventolin Hfa 2 puff INHALATION RT-QID PRN 11/20/20 01/23/21 Inhaler] Atorvastatin [Lipitor] 20 mg PO HS 11/20/20 01/23/21 Multivitamins, Thera [Multivitamin 1 tab PO DAILY 11/20/20 01/23/21 (formulary)] metFORMIN HCL [Glucophage] 500 mg PO BID 11/20/20 01/23/21 Metoprolol Succinate (ER) [Toprol 50 mg PO DAILY 11/25/20 01/23/21 XL] Cholecalciferol [Vitamin D3 (25 25 mcg PO DAILY 01/22/21 01/23/21 Mcg = 1000 Iu)] Entresto(Unknown Dose) 1 tab PO BID 01/22/21 01/23/21 Magnesium Oxide 500 mg PO DAILY 01/22/21 01/23/21 Previous Rx's Medication Instructions Recorded Furosemide [Lasix] 40 mg PO DAILY #30 tab 06/05/20 Spironolactone [Aldactone] 25 mg PO DAILY #30 tab 06/05/20 Acetaminophen Tab [Tylenol] 650 mg PO Q4HR PRN tab 01/24/21 Cyclobenzaprine [Flexeril] 10 mg PO TID PRN #20 tab 10/01/21 Docusate [Colace] 100 mg PO DAILY #30 capsule 10/01/21 HYDROcodone/APAP 5-325MG [Ashford 1 tab PO Q6HR PRN 3 Days #12 tab 10/01/21 5-325] HYDROcodone/APAP 10-325MG [Ashford 1 tab PO Q6H PRN #12 tab 10/05/21 10-325] Lidocaine [Lidoderm 5% Patch] 1 patch TRANSDERM DAILY #24 patch 10/05/21 Ondansetron Odt [Zofran Odt] 4 mg PO Q8HR PRN #10 tab 10/05/21 diphenhydrAMINE [Benadryl] 50 mg PO QID PRN #30 capsule 10/05/21 valACYclovir [Valtrex] 500 mg PO TID #21 tablet 10/05/21 Allergies Allergy/AdvReac Type Severity Reaction Status Date / Time codeine AdvReac NAUSEA, Verified 10/01/21 17:26 VOMITING, SWEATY. Review of Systems ROS Statement: Those systems with pertinent positive or pertinent negative responses have been documented in the HPI. ROS Other: All systems not noted in ROS Statement are negative. Past Medical History Past Medical History: Chest Pain / Angina, Heart Failure, Hyperlipidemia, Hypertension, Osteoarthritis (OA), Seizure Disorder, Thyroid Disorder Additional Past Medical History / Comment(s): Pt scheduled to have AICD soon, nonischemic cardiomyopathy, NIDDM type II, hypothyroid, RLS, last seizure as a teen, sinus allergies, arthritis bilateral hands, benign colon polyps. History of Any Multi-Drug Resistant Organisms: None Reported Past Surgical History: Cholecystectomy, Hernia Repair, Hysterectomy, Joint Replacement, Tonsillectomy Additional Past Surgical History / Comment(s): 2020 cardiac cath, hiatal hernia surgery, EGD, colonoscopy/benign polypectomy, total R knee arthroplasty, benign cyst removed L side of neck. Past Anesthesia/Blood Transfusion Reactions: No Reported Reaction Type of Cardiac Device: AICD Device Placement Date:: [facility] Past Psychological History: ADD/ADHD, Anxiety, Depression Smoking Status: Never smoker Past Alcohol Use History: Occasional Past Drug Use History: None Reported - Past Family History Mother Family Medical History: Cancer Additional Family Medical History / Comment(s): COLON, BRAIN & SKIN CANCER Father Family Medical History: Cancer, Myocardial Infarction ([place]) Additional Family Medical History / Comment(s): . General Exam Limitations: no limitations Course Vital Signs 10/05/21 03:23 Temperature 97.7 F Pulse Rate 78 Respiratory 16 Rate Blood Pressure 149/78 O2 Sat by Pulse 98 Oximetry Medical Decision Making - Medical Decision Making Upon arrival patient was placed into room 11. History and physical exam was performed. Patient was given a dose of valacyclovir Zofran, Atarax and a Ashford. Patient is reevaluated after medication administration reports improvement in her pain. Patient will be discharged home with prescription for Benadryl, Lidoderm patches, additional prescription for Ashford, Valtrex and Zofran. Instructed to follow up with primary care doctor in 2-4 days. Return for any new or worsening symptoms. Patient agreed to the treatment plan was discharged home in stable condition Disposition Clinical Impression: Shingles, Right flank pain Disposition: HOME SELF-CARE Condition: Stable Instructions (If sedation given, give patient instructions): Shingles (ED) Additional Instructions: Please follow-up with your primary care doctor within 2-4 days. Return for any new or worsening symptoms Prescriptions: diphenhydrAMINE [Benadryl] 50 mg PO QID PRN #30 capsule PRN Reason: Itching Lidocaine [Lidoderm 5% Patch] 1 patch TRANSDERM DAILY #24 patch HYDROcodone/APAP 10-325MG [Ashford 10-325] 1 tab PO Q6H PRN #12 tab PRN Reason: pain valACYclovir [Valtrex] 500 mg PO TID #21 tablet Ondansetron Odt [Zofran Odt] 4 mg PO Q8HR PRN #10 tab PRN Reason: Nausea Is patient prescribed a controlled substance at d/c from ED?: Yes When asked, does pt state using other controlled substances?: No If prescribed controlled substance>3 days was MAPS reviewed?: Prescribed <3 Days If opioid is for acute pain is fill amount 7 days or less?: Yes If Rx opioid, was Start Talking consent form obtained?: Yes Referrals: Lizzie Iverson MD [Primary Care Provider] - 1-2 days Time of Disposition: 04:39
== END 2021-10-05 04:52 | disposition home or self-care (01) ==
LOC: EC 03:19
DX: B02.9 Zoster without complications (principal); R10.9 Unspecified abdominal pain; E11.9 Type 2 diabetes mellitus without complications; I11.0 Hypertensive heart disease with heart failure; I50.9 Heart failure, unspecified; E03.9 Hypothyroidism, unspecified; E78.5 Hyperlipidemia, unspecified; G40.909 Epilepsy, unspecified, not intractable, without status epilepticus; M19.90 Unspecified osteoarthritis, unspecified site; F32.A Depression, unspecified; F41.9 Anxiety disorder, unspecified; F90.9 Attention-deficit hyperactivity disorder, unspecified type; Z79.84 Long term (current) use of oral hypoglycemic drugs; Z79.82 Long term (current) use of aspirin; Z79.51 Long term (current) use of inhaled steroids; Z79.890 Hormone replacement therapy; Z79.899 Other long term (current) drug therapy; Z88.5 Allergy status to narcotic agent
CPT/HCPCS: 99283

== ENCOUNTER → 2021-10-15 | Outpatient (CLI) | payer BC ==
[2021-10-15 16:31] LABS: ALT 30 U/L (8-44); AST 28 U/L (13-35); Albumin 4.5 g/dL (3.8-4.9); Albumin/Globulin Ratio 1.55 (1.60-3.17); Alkaline Phosphatase 64 U/L (41-126); BUN/Creat Ratio 21.63 Ratio (12.00-20.00); Blood Urea Nitrogen 16.5 mg/dL (9.0-27.0); Calcium 9.6 mg/dL (8.7-10.3); Carbon Dioxide 24.9 mmol/L (20.0-27.5); Chloride 101 mmol/L (96-109); Chol/HDL Ratio 4.79 Ratio; Globulin 2.9 g/dL (1.6-3.3); Glucose 142 mg/dL (70-110); LDL Cholesterol,Calculated 179.8 mg/dL (0.0-131.0); Non-African American GFR(CKD) 83.7 (60.0-200.0); Potassium 4.6 mmol/L (3.5-5.5); Sodium 140 mmol/L (135-145); Total Protein 7.4 g/dL (6.2-8.2)
== END | disposition home or self-care (01) ==
LOC: LABWHC1 09:19
PROVIDERS: ATTEND Nurse Practitioner Adult Health
DX: I42.8 Other cardiomyopathies (principal); E78.2 Mixed hyperlipidemia
CPT/HCPCS: 36415; 80053; 80061